=== PATIENT | female | born 1995 | race African-American/Black ===

== ENCOUNTER 2018-04-14 19:31 | Emergency (ER) | payer OTHER ==
[2018-04-14 19:42] VITALS: BP 115/71; PULSE 70; TEMP 98.4; BMI 19.6
--- NOTE | 2018-04-14 19:42 | PDOC ---
Rapid Medical Evaluation Chief Complaint: Pain Time Seen by Provider: 04/14/18 19:40 Medical Evaluation: Allergies Allergy/AdvReac Type Severity Reaction Status Date / Time shellfish derived Allergy Severe anaphylaxis Verified 07/26/15 08:55 04/14/18 19:40 I have performed a brief in-person evaluation of this patient. The patient presents with a chief complaint of vaginal and anal pain started at 3pm with vaginal itching. Denies vaginal discharge, states period earlier this month, light Pertinent physical exam findings: appears uncomfortable unlabored breathing I have ordered the following: urine , analgesia The patient will proceed to the ED for further evaluation.
[2018-04-14] MEDS ORDERED: KETOROLAC TROMETHAMINE 30 MG/1 ML VIAL IM ONE (19:43)
[2018-04-14] MEDS ORDERED: KETOROLAC TROMETHAMINE 30 MG/1 ML VIAL ONE ×2 (20:05→20:08)
[2018-04-14 20:34] LABS: URINE APPEARANCE SLCLOUDY; URINE BILIRUBIN NEGATIVE (<2.0 mg/dL); URINE COLOR YELLOW; URINE GLUCOSE (UA) NEGATIVE (NEGATIVE); URINE KETONE NEGATIVE (NEGATIVE); URINE NITRITE POSITIVE (NEGATIVE); URINE PROTEIN NEGATIVE (NEGATIVE); URINE UROBILINOGEN 4.0 E.U/dl mg/dL (0.2-1.0)
[2018-04-14 20:35] LABS: HCG,QUALITATIVE URINE NEGATIVE
[2018-04-14 20:36] LABS: URINE LEUK ESTERASE 3+ (NEGATIVE)
[2018-04-14 20:37] LABS: EPI CELLS MODERATE /HPF (FEW); URINE BACTERIA RARE /hpf (NONE SEEN); URINE MUCUS RARE
[2018-04-14] MEDS ORDERED: CEPHALEXIN MONOHYDRATE 500 MG CAPSULE (UD) PO ONE (21:24)
--- NOTE | 2018-04-14 21:30 | PDOC ---
History of Present Illness - General Chief Complaint: Pain Stated Complaint: ABD PAIN Time Seen by Provider: 04/14/18 19:40 History Source: Patient - History of Present Illness Initial Comments: 04/14/18 21:30 22-year-old female complaining of vaginal pain, vaginal itching and anal itching with copious white curdy discharge. Patient also reports some suprapubic pain. Patient reports that she has no partner unsure of gonorrhea and chlamydia exposure. Patient would not like treatment for gonorrhea and chlamydia until the test results come back. Denies fever, chills, nausea vomiting diarrhea, constipation and urinary symptoms at this time Past History - Past Medical History Allergies/Adverse Reactions: Allergies Allergy/AdvReac Type Severity Reaction Status Date / Time shellfish derived Allergy Severe anaphylaxis Verified 07/26/15 08:55 Home Medications: Ambulatory Orders Fluoxetine HCl [Prozac] 20 mg PO DAILY 04/15/18 Lamotrigine [Lamotrigine ER] 10 mg PO DAILY 04/15/18 Asthma: Yes Cancer: No Cardiac Disorders: No COPD: No Diabetes: No HTN: No Seizures: Yes Thyroid Disease: No - Reproductive History (#): 1 Para: 1 Therapeutic (s) & number: No - Suicide/Smoking/Psychosocial Hx Smoking History: Never smoked Have you smoked in the past 12 months: No Hx Alcohol Use: No Drug/Substance Use Hx: No Review of Systems - Review of Systems Able to Perform ROS?: Yes Is the patient limited Citizen Of [place] proficient: No : No: Symptoms Reported, See HPI, Burning, Dysuria, Discharge, Frequency, Flank Pain, Hematuria, Incontinence, Pain, Urgency, Testicular Mass, Testicular Swelling, Lesions, Testicular Pain, Other Musculoskeletal: Yes: Other (vaginal discharge, vaginal pain) *Physical Exam - Vital Signs Last Vital Signs Temp Pulse Resp BP Pulse Ox 98.4 F 70 20 115/71 98 04/14/18 19:40 04/14/18 19:40 04/14/18 19:40 04/14/18 19:40 04/14/18 19:40 - Physical Exam General Appearance: Yes: Appropriately Dressed Female Pelvic Exam: positive: normal external exam, other (copious cottage cheese appearing vaginal discharge. ) Gastrointestinal/Abdominal: positive: Tender (suprapubic tenderness), Soft Extremity: positive: Normal Capillary Refill, Normal Inspection, Normal Range of Motion Integumentary: positive: Normal Color, Dry, Warm Neurologic: positive: Fully Oriented, Alert ED Treatment Course - ADDITIONAL ORDERS Additional order review: Laboratory Results 04/14/18 20:21 Urine Color Yellow Urine Appearance Slcloudy Urine pH 7.0 D Ur Specific [place] 1.020 Urine Protein Negative Urine Glucose (UA) Negative Urine Ketones Negative Urine Blood Negative Urine Nitrite Positive Urine Bilirubin Negative Urine Urobilinogen 4.0 e.u/dl H Ur Leukocyte Esterase 3+ H Urine WBC (Auto) 11 Urine RBC (Auto) 3 Ur Epithelial Cells Moderate Urine Bacteria Rare Urine Mucus Rare Urine HCG, Qual Negative - Medications Given in the ED: ED Medications Discontinued Medications Generic Name Dose Route Start Last Admin Trade Name Freq PRN Reason Stop Dose Admin Ketorolac Tromethamine 30 mg 04/14/18 19:43 04/14/18 20:30 Toradol Injection - IM 04/14/18 19:44 30 mg ONCE ONE Administration Progress Note - Progress Note Progress Note: candidiasis UTI P: UA UCX fluconozaole bactrim *DC/Admit/Observation/Transfer Diagnosis at time of Disposition: Rima albicans infection UTI (urinary tract infection) Qualifiers: Urinary tract infection type: acute cystitis Hematuria presence: without hematuria Qualified Code(s): N30.00 - Acute cystitis without hematuria - Discharge Dispostion Disposition: HOME Condition at time of disposition: Good - Referrals - Patient Instructions Printed Discharge Instructions: Urinary Tract Infection Additional Instructions: drink plenty of fluids follow up with your doctor as soon as possible. insert monostat as prescribed. - Post Discharge Activity Forms/Work/School Notes: Back to Work
[2018-04-14] MEDS ORDERED: FLUCONAZOLE 50 MG TABLET PO ONE (21:43)
[2018-04-14] MEDS ORDERED: SULFAMETHOXAZOLE/TRIMETHOPRIM 800MG/160MG D.S. TABLET PO ONE (21:43)
[2018-04-14] MEDS ORDERED: CEPHALEXIN MONOHYDRATE 500 MG CAPSULE (UD) ONE (21:52)
[2018-04-14] MEDS ORDERED: SULFAMETHOXAZOLE/TRIMETHOPRIM 800MG/160MG D.S. TABLET ONE (21:52)
[2018-04-14] MEDS ORDERED: FLUCONAZOLE 100 MG TABLET (UD) ONE (21:52)
--- NOTE | 2018-04-17 07:34 | PDOC ---
Patient Follow-up (Call Back) - Post ED Follow - Up Condition at time of discharge: Good Disposition at time of original discharge: HOME Reason for Call Back: Abnwl. Microbiology (The patient's urine culture on preliminary report shows non-lactose fermenting GNB greater than 100,000 CFU per mL. patient was given Bactrim. Will await final report.)
== END 2018-04-14 22:40 | disposition home or self-care (01) ==
LOC: JER 19:31
PROC: 3E0233Z Introduction of Anti-inflammatory into Muscle, Percutaneous Approach (ICD-10-PCS; principal; 2018-04-14)
DX: B37.41 Candidal cystitis and urethritis (principal)
CPT/HCPCS: 36415; 81003; 81015; 84703; 87086; 87186; 87491; 87591; 99283-25

== ENCOUNTER 2018-06-04 02:16 | Emergency (ER) | payer OTHER ==
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
[2018-06-04 03:28] VITALS: BP 122/82; PULSE 70; TEMP 97.9; BMI 18.8
[2018-06-04 03:51] LABS: URINE APPEARANCE CLEAR; URINE BILIRUBIN NEGATIVE (<2.0 mg/dL); URINE COLOR YELLOW; URINE GLUCOSE (UA) NEGATIVE (NEGATIVE); URINE KETONE NEGATIVE (NEGATIVE); URINE NITRITE NEGATIVE (NEGATIVE); URINE PROTEIN NEGATIVE (NEGATIVE)
[2018-06-04 03:56] LABS: URINE LEUK ESTERASE 2+ (NEGATIVE)
[2018-06-04 03:59] LABS: EPI CELLS RARE /HPF (FEW); URINE MUCUS MANY
[2018-06-04 04:07] LABS: HCG,QUALITATIVE URINE NEGATIVE
[2018-06-04 04:10] LABS: COCAINE, UR NEGATIVE ng/ml (CUTOFF=300); METHADONE, UR NEGATIVE ng/ml (CUTOFF=300); OPIATES, URI NEGATIVE ng/ml (CUTOFF=300); PHENCYCLIDINE,URINE NEGATIVE ng/ml (CUTOFF=25); URINE AMPHETAMINES NEGATIVE ng/ml (CUTOFF=500); URINE BARBITURATES NEGATIVE ng/ml (CUTOFF=200); URINE BENZODIAZEPINES NEGATIVE ng/ml (CUTOFF=200)
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
== END 2018-06-04 04:30 | disposition home or self-care (01) ==
LOC: JER 02:16
DX: N30.00 Acute cystitis without hematuria (principal); B96.89 Other specified bacterial agents as the cause of diseases classified elsewhere; F41.9 Anxiety disorder, unspecified; G40.909 Epilepsy, unspecified, not intractable, without status epilepticus
CPT/HCPCS: 80307; 81003; 81015; 84703; 87086; 99282-25

== ENCOUNTER 2018-08-10 10:02 | Emergency (ER) | payer OTHER ==
[2018-08-10] MEDS ORDERED: SODIUM CHLORIDE 0.9% 500 ML INFUS.BAG IV ONE (10:11)
--- NOTE | 2018-08-10 10:37 | PDOC ---
History of Present Illness - General History Source: Patient Exam Limitations: No Limitations - History of Present Illness Initial Comments: 08/10/18 10:59 The patient is a 23 year old female, , approximately 6 weeks with a significant past medical history of anxiety, seizure disorder (discontinued lamictal last week) and ?CVA/stroke while working at [facility] which was treated at [facility] (not placed on any medication regimen following discharge), who presents to the emergency department via ems for near syncopal episode this morning. The patient states she woke up as usual, ate 4 waffles, and took her folic acid and vitamins feeling well. She states she went outside and stood in the sun for a moment before she developed a sudden onset of generalized weakness and lightheadedness. She states she was able to walk up one flight of stairs back to her apartment, however, developed shortness of breath and increase in weakness. She states she has experienced syncope in the past so she knew to lay down. She states her neighbors came and brought her water. The patient states she never lost consciousness or hit her head. She denies any vaginal discharge or bleeding. She denies abdominal cramping, but states her stomach feels like I have diarrhea. She denies any diarrhea. She denies having a seizure. No head trauma or LOC. She reports having an EEG, cardiac echo, 48 holter monitor, and other tests during her stay at [facility] s/p stroke and states she has not received the results from her neurologist yet because he is hard to reach. She has an appt with [facility] with Laura Krishnan the first week of August. The patient denies chest pain, headache and dizziness. The patient denies fever , chills, nausea, vomit, diarrhea and constipation. The patient denies dysuria, frequency, urgency and hematuria. Allergies: shellfish Past surgical history: none reported Social history: denies toxic habits <Flora Koroma - Last Filed: 08/10/18 12:05> - General History Source: Patient Exam Limitations: No Limitations <Desirae Osuna - Last Filed: 08/10/18 14:54> - General Chief Complaint: Syncope/Near Syncope Stated Complaint: NEAR SYNCOPE Time Seen by Provider: 08/10/18 10:10 Past History <Flora Koroma - Last Filed: 08/10/18 12:05> - Past Medical History Asthma: Yes Cancer: No Cardiac Disorders: No COPD: No Diabetes: No HTN: No Seizures: Yes Thyroid Disease: No - Reproductive History (#): 1 Para: 1 Therapeutic (s) & number: No - Suicide/Smoking/Psychosocial Hx Smoking History: Never smoked Have you smoked in the past 12 months: No Hx Alcohol Use: No Drug/Substance Use Hx: No Substance Use Type: Alcohol <Desirae Osuna - Last Filed: 08/10/18 14:54> - Past Medical History Allergies/Adverse Reactions: Allergies Allergy/AdvReac Type Severity Reaction Status Date / Time shellfish derived Allergy Severe anaphylaxis Verified 08/10/18 10:07 Home Medications: Ambulatory Orders Fluoxetine HCl [Prozac] 20 mg PO DAILY 04/15/18 Lamotrigine [Lamotrigine ER] 10 mg PO DAILY 04/15/18 Cephalexin Monohydrate [Keflex -] 500 mg PO BID #20 capsule 06/04/18 Doxylamine Succinate/Vit B6 [Diclegis Dr 10-10 mg Tablet] 1 each PO DAILY #14 tablet. 08/10/18 Review of Systems - Review of Systems Able to Perform ROS?: Yes Comments:: 08/10/18 10:59 GENERAL/CONSTITUTIONAL: (+) generalized weakness. + Near syncope. No fever or chills. no sweats. HEAD, EYES, EARS, NOSE AND THROAT: No change in vision or hearing. No ear pain or discharge. No sore throat or mouth pain. No difficulty swallowing.. No congestion. CARDIOVASCULAR: (+) lightheadedness. No chest pain or palpitations, syncope or edema. RESPIRATORY: No SOB, cough, wheezing, or hemoptysis. GASTROINTESTINAL No nausea/vomiting. No diarrhea or constipation. No bloody stools. GENITOURINARY: No hematuria, dysuria, frequency, urgency or other changes. MUSCULOSKELETAL: No joint or muscle swelling or pain. No neck or back pain. SKIN: No rash or changes in skin color or lesions. NEUROLOGIC: No headache, vertigo, loss of consciousness, or change in strength/ sensation. No gait instability. HEMATOLOGIC/LYMPHATIC: No anemia, easy bruising/bleeding, or history of blood clots. ALLERGIC/IMMUNOLOGIC: No allergies All other systems reviewed and negative, or as documented in HPI. <DanaenicholFlora worthington - Last Filed: 08/10/18 12:05> *Physical Exam - Vital Signs Last Vital Signs Temp Pulse Resp BP Pulse Ox 98.0 F 58 L 16 109/61 100 08/10/18 10:03 08/10/18 10:03 08/10/18 10:03 08/10/18 10:03 08/10/18 10:03 - Physical Exam Comments: 08/10/18 10:59 General: Well appearing, awake and alert, NAD. HEENT: NCAT, PERRL, EOMI, clear conjunctiva, anicteric, moist mucus membranes, clear oropharynx, no oral lesions.. Neck: neck supple, FROM Resp: CTAB, normal and even respirations, no respiratory distress CVS: RRR, no murmurs, 2+ peripheral pulses throughout, no peripheral edema Abdomen: soft, NTND, no peritoneal signs. Back: nontender, normal inspection and ROM MSK: no edema, GUTIERREZ x4, ROM intact. No clubbing or cyanosis. normal bulk and tone. Neuro: alert, oriented appropriately; no focal neurologic deficits. SILT, 5/5 distal and prox strength in all extrem. speech clear. Skin: warm and well perfused, cap refill <2 sec, normal color <Flora Koroma - Last Filed: 08/10/18 12:05> ED Treatment Course - LABORATORY CBC & Chemistry Diagram: 08/10/18 10:41 08/10/18 10:41 - RADIOLOGY Radiograph Interpretation: EXAM#: TYPE/EXAM: RESULT: [id number] US/ <14WKS US HISTORY PROVIDED: evaluation. Real time examination of the pelvis demonstrates the following: There is a single, live intrauterine with crown-rump measurements corresponding to a gestational age of 6 weeks. A heart rate of 156 BPM was calculated. The ovaries could not be identified. There is no evidence of adnexal masses or free pelvic fluid collections. IMPRESSION: Single, live intrauterine of 6 weeks gestational age. Reported By: Ney Valverde MD 08/10/18 1132 - Medications Given in the ED: ED Medications Discontinued Medications Generic Name Dose Route Start Last Admin Trade Name Freq PRN Reason Stop Dose Admin Sodium Chloride 1,000 ml 08/10/18 10:11 08/10/18 10:40 Normal Saline - IV 08/10/18 10:12 1,000 ml ONCE ONE Administration <Flora Koroma - Last Filed: 08/10/18 12:05> - LABORATORY CBC & Chemistry Diagram: 08/10/18 10:41 08/10/18 10:41 <Desirae Osuna - Last Filed: 08/10/18 14:54> Medical Decision Making - Medical Decision Making 08/10/18 14:50 23 year old female, , approximately 6 weeks with a significant past medical history of anxiety, seizure disorder (discontinued lamictal last week) and ?CVA/stroke while working at [facility] presenting with dizziness, since resolved. no AP or VB. vitals wnl. labs and lytes wnl. preg test positive, IUP confirmed at 6 weeks w/o pelvic FF or adnexal abnormalities on TVUS. UA neg for infection, completed macrobid course. UA neg for ketones or signs of dehydration. given IVF, well appearing, declines pain meds or antiemetics at this time. clinically well appearing, nontoxic. abdomen nontender, able to tolerate PO. OB followup, referral given. c/w prenatals, avoid tobacco or smoking. also rx'd diclegis for nausea in . referrals for [place] care and OB given. Pt informed of my clinical impression, treatment recommendations and disposition plan. All questions answered to patient's satisfaction and expressed understanding and comfort with this. Reasons for returning to the ED sooner discussed with the patient otherwise, follow up with primary care physician. At the time of discharge, the patient is alert, clinically improved, tolerating po and verbalizes understanding of instructions. return precautions such as pain, syncope or bleeding. 08/10/18 14:53 <Desirae Osuna - Last Filed: 08/10/18 14:54> *DC/Admit/Observation/Transfer - Attestations Scribe Attestion: 08/10/18 10:59 Documentation prepared by Flora Koroma, acting as program medical director for Desirae Osuna MD, <Flora Koroma - Last Filed: 08/10/18 12:05> - Discharge Dispostion Decision to Admit order: No <Desirae Osuna - Last Filed: 08/10/18 14:54> Diagnosis at time of Disposition: , Dizziness - Discharge Dispostion Disposition: HOME Condition at time of disposition: Improved - Prescriptions Prescriptions: Doxylamine Succinate/Vit B6 [Diclegis Dr 10-10 mg Tablet] 1 each PO DAILY #14 tablet.dr - Referrals Referrals: Savanna Alves [Primary Care Provider] - Ling Kidd MD [Staff Physician] - Laura Krishnan MD [Certified Nurse Senior Field Service Engineer] - - Patient Instructions Printed Discharge Instructions: Diet, DI for Abdominal Pain -- Early , DI for Dizziness-Nonvertigo Additional Instructions: Your laboratory / imaging results were normal, urine negative for infection your ultrasound confirms baby at 6 weeks. Follow up with your physician and consultants as instructed, take your medications as instructed including Diclegis daily as needed for nausea, may cause sleepiness Return if worsening symptoms including fevers, headache, vomiting, visual or hearing disturbances, abdominal pain, chest pain, shortness of breath, syncope, dehydration, inability to take things by mouth/vomiting, altered mental status, or worsening concerning symptoms. your medications on discharge include Diclegis side effects may include upset stomach, abdominal pain, vomiting, or diarrhea. do not drink alcohol with your medications or use tobacco. take your vitamins please follow up with spinner operator for your stay well hydrated . - Post Discharge Activity Forms/Work/School Notes: Back to Work
[2018-08-10 10:52] VITALS: BP 109/61; PULSE 58; TEMP 98; BMI 18.4
[2018-08-10 10:58] LABS: BASO % 0.3 % (0-2.0); EOS % 1.3 % (0-4.5); HEMATOCRIT 37.7 % (32.4-45.2); HEMOGLOBIN 12.3 GM/dL (10.7-15.3); LYMPH % 12.4 % (8-40); MCH 28.5 pg (25.7-33.7); MCHC 32.5 g/dl (32.0-36.0); MEAN CELL VOLUME 87.6 fl (80-96); MEAN PLT VOLUME 7.2 fl (7.5-11.1); MONO % 5.9 % (3.8-10.2); NEUT % 80.1 % (42.8-82.8); PLATELET COUNT 216 K/MM3 (134-434); RDW 13.1 % (11.6-15.6); WHITE BLOOD COUNT 11.6 K/mm3 (4.0-10.0)
[2018-08-10 11:13] LABS: POTASSIUM 3.8 mmol/L (3.5-5.1)
[2018-08-10 12:30] LABS: CALCIUM 9.2 mg/dL (8.5-10.1)
[2018-08-10 12:56] LABS: ALBUMIN 3.3 g/dl (3.4-5.0); ANION GAP 9 MMOL/L (8-16); BLOOD UREA NITROGEN 13 mg/dL (7-18); CHLORIDE 107 mmol/L (98-107); CO2 23 mmol/L (21-32); GLUCOSE,RANDOM 79 mg/dL (74-106); SODIUM 139 mmol/L (136-145)
[2018-08-10 13:18] LABS: ALK PHOS 45 U/L (45-117); BILIRUBIN,TOTAL 1.1 mg/dL (0.2-1); CREATININE 0.6 mg/dL (0.55-1.3); SGOT/AST 14 U/L (15-37); SGPT/ALT 18 U/L (13-61); TOT PROT 7.2 g/dl (6.4-8.2)
--- NOTE | 2018-08-10 13:38 | EKG ---
Test Reason : Blood Pressure : / mmHG Vent. Rate : 056 BPM Atrial Rate : 056 BPM P-R Int : 146 ms QRS Dur : 088 ms QT Int : 378 ms P-R-T Axes : 024 083 061 degrees QTc Int : 364 ms SINUS BRADYCARDIA OTHERWISE NORMAL ECG WHEN COMPARED WITH ECG OF 06-DEC-2015 14:47, NO SIGNIFICANT CHANGE WAS FOUND Confirmed by KAYLAH TRIANA MD ([id number]) on 08/10/2018 1:37:39 PM Referred By: Confirmed By:KAYLAH TRIANA MD
[2018-08-10 14:30] LABS: HCG,QUALITATIVE URINE Positive
[2018-08-10 14:32] LABS: URINE APPEARANCE CLEAR; URINE BILIRUBIN NEGATIVE (<2.0 mg/dL); URINE COLOR YELLOW; URINE GLUCOSE (UA) NEGATIVE (NEGATIVE); URINE KETONE NEGATIVE (NEGATIVE); URINE LEUK ESTERASE NEGATIVE (NEGATIVE); URINE NITRITE NEGATIVE (NEGATIVE); URINE PROTEIN NEGATIVE (NEGATIVE); URINE UROBILINOGEN NEGATIVE mg/dL (0.2-1.0)
== END 2018-08-10 14:57 | disposition home or self-care (01) ==
LOC: JER 10:02
PROC: 3E0337Z Introduction of Electrolytic and Water Balance Substance into Peripheral Vein, Percutaneous Approach (ICD-10-PCS; principal; 2018-08-10)
DX: O26.891 Other specified pregnancy related conditions, first trimester (principal); Z3A.01 Less than 8 weeks gestation of pregnancy; R42 Dizziness and giddiness
CPT/HCPCS: 36415; 76801-TC; 80053; 81003; 84702; 84703; 85025; 87086; 93005; 93010; 96360; 99284-25

== ENCOUNTER 2019-04-07 11:00 | Inpatient (IN) | payer OTHER ==
--- NOTE | 2019-04-07 11:19 | HP ---
Past Medical History - Admission Chief Complaint: IOL History of Present Illness: 23yo @ 40.2wks here for elective IOL 2/2 maternal discomfort. No VB/LOF. Occ ctx. +FM Preg c/b UTI, h/o absence seizures- no meds; numerous triage visits, usually via EMS, for non urgent concerns. Last seen on 04/04 and was not in labor. Cervix 70/3/-3, offered scheduled elective IOL in the coming days, if no spont labor ensued. 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: Alzheimer's, CVA, Dementia, Migraine, Multiple Sclerosis, Peripheral Neuropathy, Parkinson's, Syncope, TIA, Vertigo, Other Cardiovascular: No: AFIB, Aneurysm, Aortic Insufficiency, Aortic Stenosis, CAD, CHF, Deep Vein Thrombosis, HTN, Hyperlipdemia, VT, Mitral Insufficiency, Mitral Stenosis, Murmur, Pulmonary Hypertension, Other Pulmonary: No: Asthma, Bronchitis, Cancer, COPD, O2 Dependent, Pneumonia, Previously Intubated, Pulmonary Embolus, Pulmonary Fibrosis, Sleep Apnea, Other Hepatobiliary: No: Cirrhosis, Cholelithiasis, Cholecystitis, Choledocholithiasis , Hepatitis A, Hepatitis B, Hepatitis C, Other Renal/: Yes: UTI ...: 2 ...Para: 1 ...Term: 1 ...: 0 ...Spon : 0 ... Weeks Gestation by Dates: 40.2 ...EDC by Dates: 04/05/19 ...EDC by Sono: 04/01/19 Heme/Onc: Yes: Anemia Infectious Disease: No: AIDS, C-Diff, Herpes Zoster, HIV, MRSA, STD's, Tuberculosis, VREF, Other Psych: Yes: Anxiety, Panic Musculoskeletal: No: Bursitis, Chronic low back pain, Hemiparesis, Hemiplegia, Osteoarthritis, Paraplegia, Other Rheumatology: No: Fibromyalgia, Gout, Lupus, Rheumatoid Arthritis, Sarcoidosis, Vasculitis, Other Endocrine: No: [place]'s Disease, Midnight's Disease, Diabetes Insipidus, Diabetes Mellitus, Hyperparathyroidism, Hyperthyroidism, Hypothyroidism, Osteopenia, SIADH, Other Additional Medical History: Absence Seizures - Past Surgical History Past Surgical History: Yes: None Hx Myomectomy: No Hx Transabdominal Cerclage: No - Smoking History Smoking history: Never smoked Have you smoked in the past 12 months: No - Alcohol/Substance Use Hx Alcohol Use: No - Social History Usual Living Arrangement: Yes: Alone ADL: Independent History of Recent Travel: No Home Medications - Allergies Allergies/Adverse Reactions: Allergies Allergy/AdvReac Type Severity Reaction Status Date / Time shellfish derived Allergy Severe anaphylaxis Verified 04/07/19 12:14 - Home Medications Home Medications: Ambulatory Orders Vit 108/Iron/Folic AC [ One Tablet] 1 each PO DAILY 12/15/18 Docusate Sodium [Colace] 1 tab PO BID 04/03/19 Tablet 1 tablet PO DAILY 04/07/19 Physical Exam - Maternity Constitutional: Yes: Well Nourished, No Distress, Calm Eyes: Yes: WNL, Conjunctiva Clear, EOM Intact HENT: Yes: WNL, Atraumatic, Normocephalic Neck: Yes: WNL, Supple, Trachea Midline Cardiovascular: Yes: WNL, Regular Rate and Rhythm Breast(s): Yes: WNL - Abdominal Exam/OB Number of Fetuses: Single Presentation: Vertex Contractions: Yes Regularity: Irregular Intensity: Mild/Mod Heart Rate Location: [facility] Category: I Accelerations: Non-Uniform Decelerations: None - Vaginal Exam/OB Vaginal Bleediing: No Speculum Exam: No Dilatation (cm): 3 Effacement (%): 70 Amniotic Membrane Status: Intact Presentation: Vertex/Position Station: -3 - Physical Exam Edema: No Problem List - Problems (1) Elective induction of labor planned Code(s): [id number] - Assessment/Plan 23yo @ 40.2wks here for elective IOL Admit to L&D chato AMOS Cat I tracing AROM/Pitocin Epidural prn Anticipate MARIANN Arellano MD
[2019-04-07] MEDS ORDERED: ELECTROLYTE-148 SOLN 1,000 ML IV SCH (11:30)
[2019-04-07] MEDS ORDERED: OXYTOCIN 20 UNITS in 0.9% NS 20 UNIT/1,000 ML INFUS.BAG IV ONE (11:31)
--- NOTE | 2019-04-07 11:51 | PN ---
Progress Note, Labor Vaginal Exam #1 Labor Exam Date: 04/07/19 Labor Exam Time: 11:50 Heart Rate (range): Cat I Dilatation: 4 Effacement (%): 70 Amniotic Membrane Status: Ruptured Presentation: Vertex/Position Station: -2 Remarks: AROM, clears Start pitocin Cat I tracing Epidural prn Anticipate Mercedez Arellano MD
[2019-04-07 11:59] VITALS: BMI 26.2
[2019-04-07 12:20] LABS: BASO % 0.2 % (0-2.0); HEMATOCRIT 33.1 % (32.4-45.2); HEMOGLOBIN 10.9 GM/dL (10.7-15.3); LYMPH % 12.9 % (8-40); MCH 29.8 pg (25.7-33.7); MCHC 32.8 g/dl (32.0-36.0); MEAN CELL VOLUME 90.8 fl (80-96); MEAN PLT VOLUME 6.6 fl (7.5-11.1); MONO % 8.5 % (3.8-10.2); NEUT % 77.4 % (42.8-82.8); PLATELET COUNT 289 K/MM3 (134-434); RBC 3.65 M/mm3 (3.60-5.2); RDW 13.6 % (11.6-15.6); WHITE BLOOD COUNT 11.8 K/mm3 (4.0-10.0)
[2019-04-07 12:43] LABS: CALCIUM 8.8 mg/dL (8.5-10.1); CREATININE 0.5 mg/dL (0.55-1.3); POTASSIUM 4.5 mmol/L (3.5-5.1)
[2019-04-07 12:47] LABS: INR 0.92 (0.83-1.09); PROTHROMBIN TIME (PATIENT) 10.8 SEC (9.7-13.0)
[2019-04-07 12:50] LABS: ACTIVATED PTT 30.5 SECONDS (25.2-36.5)
[2019-04-07] MEDS ORDERED: OXYTOCIN 30 UNITS in 0.9% NS 30 UNIT/500 ML INFUS.BAG IVPB SCH (13:00)
--- NOTE | 2019-04-07 15:50 | PN ---
Progress Note, Labor Vaginal Exam #1 Labor Exam Date: 04/07/19 Labor Exam Time: 15:49 Heart Rate (range): Cat I Dilatation: 5 Effacement (%): 70 Amniotic Membrane Status: Ruptured Presentation: Vertex/Position Station: -2 Remarks: Continue current management Continue pitocin Cat I tracing Anticipate MARIANN Arellano MD
[2019-04-07] MEDS ORDERED: SODIUM PHOSPHATE/NA BIPHOS 133 ML ENEMA PR ONE (18:22)
--- NOTE | 2019-04-07 18:22 | PN ---
Progress Note, Labor Vaginal Exam #3 Labor Exam Date: 04/07/19 Labor Exam Time: 18:22 Heart Rate (range): Cat I Dilatation: 6 Effacement (%): 80 Amniotic Membrane Status: Ruptured Presentation: Vertex/Position Station: -2 Remarks: Getting more uncomfortable Requesting enema, will give Cat I tracing Anticipate MARIANN Arellano MD
--- NOTE | 2019-04-07 20:32 | PN ---
Progress Note, Labor Vaginal Exam #4 Labor Exam Date: 04/07/19 Labor Exam Time: 20:31 Heart Rate (range): Cat I Dilatation: 6 Effacement (%): 80 Amniotic Membrane Status: Ruptured Presentation: Vertex/Position Station: -2 Remarks: No groover and turner last 2 hours Cont to increase pitocin, consider IUPC next exam if unchanged Cat I tracing Anticipate Kermit Arellano MD
[2019-04-07] MEDS ORDERED: OXYTOCIN 30 UNITS in 0.9% NS 30 UNIT/500 ML INFUS.BAG IVPB ONE (20:37)
--- NOTE | 2019-04-07 22:26 | PN ---
Progress Note, Labor Vaginal Exam #5 Labor Exam Date: 04/07/19 Labor Exam Time: 22:23 Heart Rate (range): Cat I Dilatation: 6 Effacement (%): 80 Amniotic Membrane Status: Ruptured Presentation: Vertex/Position Station: -2 Remarks: No cervical change x 4 hours despite regular contractions. 11 hours ruptured and on pitocin Will give additional 2 hours and if no cervical change, discussed PLTCS for arrested labor FHT Cat I Reassess in 2 hours Mercedez Arellano MD
[2019-04-07] MEDS ORDERED: ONDANSETRON 4 MG/2 ML VIAL IVPUSH PRN (23:24)
[2019-04-07] MEDS ORDERED: morphine SULFATE/Preservative Free 0.5 MG/ML (1cc Syringe) EP ONE (23:24)
[2019-04-07] MEDS ORDERED: CITRIC ACID/SODIUM CITRATE 30 ML UNIT-DOSE CUP PO ONE (23:31)
--- NOTE | 2019-04-07 23:31 | PN ---
Progress Note, Labor Vaginal Exam #5 Labor Exam Date: 04/07/19 Labor Exam Time: 23:28 Heart Rate (range): Cat I Dilatation: 6 Effacement (%): 80 Amniotic Membrane Status: Ruptured Presentation: Vertex/Position Station: -2 Remarks: No cervical progress and descent since 6pm; station still -2 On pitocin 18mu, ruptured and very comfortable 12 hours on pitocin now and only 2cm progress throughout the day despite regular contractions Discussed arrest of first stage of labor and option to proceed to OR for PLTCS. Risk of procedure discussed, including bleeding, infection and injury to surrounding organs Mercedez Arellano MD
[2019-04-07] MEDS ORDERED: morphine SULFATE/Preservative Free 0.5 MG/ML (1cc Syringe) ONE (23:39)
[2019-04-07] MEDS ORDERED: ceFAZolin SODIUM 1 GM VIAL ONE (23:40)
[2019-04-08] MEDS ORDERED: OXYTOCIN 10 UNITS/ML VIAL ONE ×2 (00:14→00:29)
[2019-04-08] MEDS ORDERED: KETOROLAC TROMETHAMINE 30 MG/1 ML VIAL ONE (00:39)
[2019-04-08] MEDS ORDERED: BENZOCAINE 28 GM HEMORRHOIDAL OINTMENT TP PRN (00:46)
[2019-04-08] MEDS ORDERED: BENZOCAINE 20% 57 GM BOTTLE TP PRN (00:46)
[2019-04-08] MEDS ORDERED: SENNOSIDES/DOCUSATE COMBO (SENNA PLUS) TABLET (UD) PO PRN (00:46)
[2019-04-08] MEDS ORDERED: IBUPROFEN 600 MG TABLET (FP) PO PRN (00:46)
[2019-04-08] MEDS ORDERED: oxyCODONE HCL 5 MG TABLET PO PRN (00:46)
[2019-04-08] MEDS ORDERED: WITCH HAZEL 50% (TUCKS) 40 PAD/JAR PAD TP PRN (00:46)
[2019-04-08] MEDS ORDERED: IBUPROFEN 800 MG/8 ML IJ IVPB PRN (00:46)
--- NOTE | 2019-04-08 00:46 | OP ---
Operative Note - Note: Operative Date: 04/08/19 Pre-Operative Diagnosis: PLTCS Operation: PLTCS Findings: VFI, GAGANDEEP position, no nuchal and meconium, Apgars 9/9. Weight pending. Normal tubes and ovaries. Post-Operative Diagnosis: Same as Pre-op Surgeon: Eloise Arellano Coffee Shop Aide: Maile Russo Anesthesia: Spinal Estimated Blood Loss (mls): 500 Drains, Volume Out (mls): 100 (clear urine)
[2019-04-08] MEDS ORDERED: OXYTOCIN 20 UNITS in 0.9% NS 20 UNIT/1,000 ML INFUS.BAG IV SCH (01:00)
[2019-04-08] MEDS ORDERED: OXYTOCIN 20 UNITS in 0.9% NS 20 UNIT/1,000 ML INFUS.BAG IV ONE (01:47)
[2019-04-08] MEDS: FERROUS SO4 325 MG TABLET (FP) PO SCH ×2 (10:20→21:22)
[2019-04-08] MEDS: PRENATAL VITAMINS W/ FOLIC ACID TABLET (FP) PO SCH (10:20)
--- NOTE | 2019-04-08 11:14 | OP ---
DATE OF OPERATION: 04/08/2019 PREOPERATIVE DIAGNOSIS: Arrest of labor. POSTOPERATIVE DIAGNOSIS: Arrest of labor. PROCEDURE PERFORMED: Primary low transverse section. SURGEON: Eloise Arellano MD TILTING SAW OPERATOR: Maile Russo MD ANESTHESIOLOGIST: Rocky Coffey MD ANESTHESIA TYPE: Spinal. ESTIMATED BLOOD LOSS: 500. INTRAVENOUS FLUIDS: Per Anesthesia record. URINE OUTPUT: 100 mL of clear urine at the end of the procedure. FINDINGS: Viable female , GAGANDEEP presentation. No nuchal, no meconium. Weight 8 pounds 5 ounces, Apgars 9 and 9. Normal tubes and ovaries bilaterally. COMPLICATIONS: None. CONDITION: Stable to the recovery room. DESCRIPTION OF PROCEDURE: After the appropriate consents were signed, the patient was taken to the operating room, where spinal anesthesia was administered. A Bates catheter had been inserted prior to entry into the operating room. The abdomen was then prepped and draped in the normal sterile fashion. A time-out was performed , confirming correct patient and procedure. A Pfannenstiel skin incision was made and carried through to the underlying layers until the fascia was nicked in the midline. The fascia was then extended laterally with the Rhodes scissors. The inferior aspect of the fascia was grasped with a Augusta clamp, tented upwards and the rectus muscles were dissected off bluntly and with the Rhodes scissors. Attention was then paid to the superior aspect, which was taken down in a similar fashion. The rectus muscles were bluntly in the midline. The peritoneum was entered bluntly. A bladder blade was then inserted. The uterine serosa was nicked in the midline and extended laterally with the Metzenbaum scissors. The bladder flap was then created digitally. The bladder blade was then reinserted. The uterus was incised in a low transverse fashion with the scalpel. Clear amniotic fluid was noted. The infant's head was delivered without difficulty, as were the remaining shoulder and body. The cord was clamped and cut. The was handed off to the awaiting pediatric staff. The placenta was then removed manually. The uterus was then cleared of all clot and debris. The hysterotomy was closed in a single layer with 1-0 Vicryl. The right edge, upon release of tension, was noted to be oozing and thisaspect was reinforced with a [id number] suture of 0 Vicryl, with a good result. The adnexa were inspected and noted to be normal. The gutters were cleared of all clot and debris. The muscles were then reapproximated with 2-0 chromic. The fascia was closed with 0 Vicryl. The skin was closed with 3-0 Vicryl. Appropriate bandages and dressings were placed. Sponge, lap and needle counts were correct x3. The patient did receive 1 g Ancef at the start of the procedure. She was taken from the operating room to the recovery area in stable condition. MD SUSAN CHAPIN/[id number] MTDD
[2019-04-08] MEDS ORDERED: ONDANSETRON 4 MG TABLET PO PRN (11:41)
[2019-04-08] MEDS: ACETAMINOPHEN 325 MG TABLET (FP) PO PRN (21:18)
[2019-04-08] MEDS: IBUPROFEN 600 MG TABLET (FP) PO PRN (21:18)
[2019-04-08] MEDS: SIMETHICONE 80 MG TAB.CHEW (FP) PO PRN (21:19)
[2019-04-09] MEDS ORDERED: BISACODYL 10 MG SUPP.RECT RC PRN (00:46)
[2019-04-09] MEDS: SIMETHICONE 80 MG TAB.CHEW (FP) PO PRN ×3 (03:40→19:46)
[2019-04-09] MEDS: IBUPROFEN 600 MG TABLET (FP) PO PRN ×2 (03:40→19:48)
[2019-04-09] MEDS: ACETAMINOPHEN 325 MG TABLET (FP) PO PRN ×2 (03:40→19:47)
[2019-04-09 07:17] LABS: BASO % 0.4 % (0-2.0); EOS % 0.7 % (0-4.5); HEMATOCRIT 26.6 % (32.4-45.2); HEMOGLOBIN 8.8 GM/dL (10.7-15.3); LYMPH % 8.9 % (8-40); MCH 29.9 pg (25.7-33.7); MCHC 33.1 g/dl (32.0-36.0); MEAN CELL VOLUME 90.3 fl (80-96); MEAN PLT VOLUME 6.7 fl (7.5-11.1); MONO % 8.1 % (3.8-10.2); NEUT % 81.9 % (42.8-82.8); PLATELET COUNT 249 K/MM3 (134-434); RBC 2.94 M/mm3 (3.60-5.2); RDW 13.5 % (11.6-15.6); WHITE BLOOD COUNT 17.4 K/mm3 (4.0-10.0)
[2019-04-09] MEDS: FERROUS SO4 325 MG TABLET (FP) PO SCH ×2 (09:30→22:17)
[2019-04-09] MEDS: PRENATAL VITAMINS W/ FOLIC ACID TABLET (FP) PO SCH (10:12)
--- NOTE | 2019-04-09 11:20 | PN ---
Post Progress Note Post Day: 1 Type of Delivery: Primary C/S Vital Signs: Vital Signs Temperature 98.5 F 04/09/19 10:00 Pulse Rate 87 04/09/19 10:00 Respiratory Rate 17 04/09/19 10:00 Blood Pressure 108/76 04/09/19 10:00 O2 Sat by Pulse Oximetry (%) 100 04/08/19 01:35 Uterus: Yes: Fundus below umbilicus Incision: Yes: Dressing dry and intact Abdomen/GI: Yes: Abdomen soft Lochia: Yes: Rubra Lochia, amount: Small Extremities: Yes: Calves non-tender Activity: Ambulating (Pain controlled. No fevers/chills.) - Labs Labs: CBC WBC 17.4 K/mm3 (4.0-10.0) H 04/09/19 06:00 RBC 2.94 M/mm3 (3.60-5.2) L 04/09/19 06:00 Hgb 8.8 GM/dL (10.7-15.3) L 04/09/19 06:00 Hct 26.6 % (32.4-45.2) L D 04/09/19 06:00 MCV 90.3 fl (80-96) 04/09/19 06:00 MCH 29.9 pg (25.7-33.7) 04/09/19 06:00 MCHC 33.1 g/dl (32.0-36.0) 04/09/19 06:00 RDW 13.5 % (11.6-15.6) 04/09/19 06:00 Plt Count 249 K/MM3 (134-434) 04/09/19 06:00 MPV 6.7 fl (7.5-11.1) L 04/09/19 06:00 Absolute Neuts (auto) 14.3 K/mm3 (1.5-8.0) H 04/09/19 06:00 Neutrophils % 81.9 % (42.8-82.8) 04/09/19 06:00 Lymphocytes % 8.9 % (8-40) D 04/09/19 06:00 Monocytes % 8.1 % (3.8-10.2) 04/09/19 06:00 Eosinophils % 0.7 % (0-4.5) 04/09/19 06:00 Basophils % 0.4 % (0-2.0) 04/09/19 06:00 Nucleated RBC % 0 % (0-0) 04/09/19 06:00 Problem List - Problems (1) Elective induction of labor planned Code(s): [id number] - Assessment/Plan 23yo s/p PLTCS, POD#1 Routine PP care Labs reviewed, anemia, iron BID Po pain control OOB, ambulate D/C to home POD#3 Mercedez Arellano MD
--- NOTE | 2019-04-10 09:06 | PN ---
Post Progress Note Type of Delivery: Primary C/S Vital Signs: Vital Signs Temperature 98.5 F 04/09/19 19:58 Pulse Rate 96 H 04/09/19 19:58 Respiratory Rate 20 04/09/19 19:58 Blood Pressure 120/82 04/09/19 19:58 O2 Sat by Pulse Oximetry (%) 100 04/08/19 01:35 Uterus: Yes: Fundus below umbilicus Incision: Yes: Dressing dry and intact, Sutures intact Abdomen/GI: Yes: Abdomen soft Lochia: Yes: Rubra Lochia, amount: Small Extremities: Yes: Calves non-tender Perineum: Yes: Intact Activity: Ambulating (Pain controlled. Ambulating w/o difficulty.) - Labs Labs: CBC WBC 17.4 K/mm3 (4.0-10.0) H 04/09/19 06:00 RBC 2.94 M/mm3 (3.60-5.2) L 04/09/19 06:00 Hgb 8.8 GM/dL (10.7-15.3) L 04/09/19 06:00 Hct 26.6 % (32.4-45.2) L D 04/09/19 06:00 MCV 90.3 fl (80-96) 04/09/19 06:00 MCH 29.9 pg (25.7-33.7) 04/09/19 06:00 MCHC 33.1 g/dl (32.0-36.0) 04/09/19 06:00 RDW 13.5 % (11.6-15.6) 04/09/19 06:00 Plt Count 249 K/MM3 (134-434) 04/09/19 06:00 MPV 6.7 fl (7.5-11.1) L 04/09/19 06:00 Absolute Neuts (auto) 14.3 K/mm3 (1.5-8.0) H 04/09/19 06:00 Neutrophils % 81.9 % (42.8-82.8) 04/09/19 06:00 Lymphocytes % 8.9 % (8-40) D 04/09/19 06:00 Monocytes % 8.1 % (3.8-10.2) 04/09/19 06:00 Eosinophils % 0.7 % (0-4.5) 04/09/19 06:00 Basophils % 0.4 % (0-2.0) 04/09/19 06:00 Nucleated RBC % 0 % (0-0) 04/09/19 06:00 Problem List - Problems (1) Elective induction of labor planned Code(s): [id number] - Assessment/Plan 23yo s/p PLTCS, POD#2 Routine PP care Labs reviewed, anemia, iron BID Po pain control OOB, ambulate D/C to home by POD#3 Mercedez Arellano MD
[2019-04-10] MEDS: IBUPROFEN 600 MG TABLET (FP) PO PRN ×2 (09:44→17:12)
[2019-04-10] MEDS: SIMETHICONE 80 MG TAB.CHEW (FP) PO PRN ×2 (09:44→17:12)
[2019-04-10] MEDS: PRENATAL VITAMINS W/ FOLIC ACID TABLET (FP) PO SCH (09:44)
[2019-04-10] MEDS: FERROUS SO4 325 MG TABLET (FP) PO SCH ×2 (09:44→21:36)
[2019-04-10] MEDS: ACETAMINOPHEN 325 MG TABLET (FP) PO PRN ×2 (09:45→17:12)
[2019-04-10 22:59] VITALS: TEMP 98.5
[2019-04-11] MEDS: IBUPROFEN 600 MG TABLET (FP) PO PRN (06:15)
[2019-04-11] MEDS: ACETAMINOPHEN 325 MG TABLET (FP) PO PRN (06:16)
[2019-04-11] MEDS: SIMETHICONE 80 MG TAB.CHEW (FP) PO PRN (06:16)
[2019-04-11 06:57] LABS: BASO % 0.5 % (0-2.0); EOS % 2.3 % (0-4.5); HEMATOCRIT 31.4 % (32.4-45.2); HEMOGLOBIN 10.2 GM/dL (10.7-15.3); LYMPH % 12.1 % (8-40); MCH 29.5 pg (25.7-33.7); MCHC 32.6 g/dl (32.0-36.0); MEAN CELL VOLUME 90.6 fl (80-96); MEAN PLT VOLUME 6.3 fl (7.5-11.1); MONO % 6.6 % (3.8-10.2); NEUT % 78.5 % (42.8-82.8); PLATELET COUNT 294 K/MM3 (134-434); RBC 3.46 M/mm3 (3.60-5.2); RDW 13.8 % (11.6-15.6); WHITE BLOOD COUNT 12.6 K/mm3 (4.0-10.0)
[2019-04-11 07:44] VITALS: BP 116/77; PULSE 62
--- NOTE | 2019-04-11 08:18 | DS ---
Physical Examination Vital Signs: Vital Signs Temperature 98.5 F 04/11/19 07:42 Pulse Rate 62 04/11/19 07:42 Respiratory Rate 20 04/11/19 07:42 Blood Pressure 116/77 04/11/19 07:42 O2 Sat by Pulse Oximetry (%) 100 04/08/19 01:35 Constitutional: Yes: Well Nourished Eyes: Yes: WNL HENT: Yes: WNL Neck: Yes: Supple Gastrointestinal: Yes: Normal Bowel Sounds Renal/: Yes: WNL Breast(s): Yes: WNL Musculoskeletal: Yes: WNL Extremities: Yes: WNL Edema: Yes Edema: LLE: 1+, RLE: 1+ Wound/Incision: Yes: Clean/Dry, Well Approximated, Sutures Intact Neurological: Yes: Alert, Oriented ...Motor Strength: WNL Psychiatric: Yes: Alert, Oriented Labs: CBC, BMP 04/11/19 06:41 04/07/19 12:00 Discharge Summary Reason For Visit: INDUCTION OF LABOR Current Active Problems Elective induction of labor planned (Acute) Procedures: Principal: PLTCS Hospital Course: Patient is on POD # 3 S/P PLTCS following failed IOL. Uncomplicated recovery inpatient course. Patient has been seen and evaluated for SW and final CPS decision is pending. Infant's Discharge disposition will be determined by CPS. PP/post-op precautions discussed and all questions answered. Condition: Stable - Instructions Diet, Activity, Other Instructions: Regular Diet return to clinic in 1 week for incision check and 6 weeks for check. call [facility] for appointment. [phone] Referrals: Eloise Arellano MD [Staff Physician] - Disposition: HOME - Home Medications Comprehensive Discharge Medication List: Ambulatory Orders Vit 108/Iron/Folic AC [ One Tablet] 1 each PO DAILY 12/15/18 Docusate Sodium [Colace] 1 tab PO BID 04/03/19 Tablet 1 tablet PO DAILY 04/07/19 Ibuprofen 600 mg PO Q6H PRN #30 tablet 04/09/19 Oxycodone HCl/Acetaminophen [Percocet 5-325 mg Tablet -] 1 - 2 tab PO Q6H PRN # 15 tab MDD 4 04/09/19
[2019-04-11] MEDS: PRENATAL VITAMINS W/ FOLIC ACID TABLET (FP) PO SCH (09:22)
[2019-04-11] MEDS: FERROUS SO4 325 MG TABLET (FP) PO SCH (09:22)
--- NOTE | 2019-04-13 15:13 | PATH ---
Surgical Pathology Report Patient Name: SANDRA LONGORIA Med. Rec. 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 MILD ACUTE CHORIOAMNIONITIS. Electronically Signed Hamida Valentine M.D. Gross Description The specimen is received fresh labeled placenta and is a 745 gram, 26 x 21 x 2.5 cm. placenta with attached membranes and umbilical cord. The attached membranes appear mucoid and insert marginally .The eccentrically attached umbilical cord measures 36 cm. in length and averages 2.2 cm. in diameter. No true knots or strictures are identified. Cut surface of the umbilical cord reveals 3 vessels. The surface is patel-blue with minimal fibrin deposition and appropriate caliber vessels. The maternal surface is red-brown with focal defects. Sectioning reveals red-brown, spongy parenchyma. No lesions are identified. Supervisor Felling Bucking sections are submitted in three cassettes as follows: 1- membrane rolls and umbilical cord; 2-3- full thickness sections of placenta. AE/04/10/2019 ebram/04/10/2019
== END 2019-04-11 13:30 | disposition home or self-care (01) | DRG 540 ==
LOC: JLDR 11:00 → J3W 04-08 03:03
PROVIDERS: ADMIT Obstetrics & Gynecology; ATTEND Obstetrics & Gynecology
PROC: 10D00Z1 Extraction of Products of Conception, Low, Open Approach (ICD-10-PCS; principal; 2019-04-08)
DX: O48.0 Post-term pregnancy (principal); Z3A.40 40 weeks gestation of pregnancy; O62.1 Secondary uterine inertia; Z37.0 Single live birth
CPT/HCPCS: 36415; 80048; 85025; 85610; 85730; 86593; 86850; 86900; 86901; 88307-TC

== ENCOUNTER 2019-04-29 17:07 | Emergency (ER) | payer OTHER | END 2019-04-29 18:40 | disposition home or self-care (01) | LOC: JER 17:07 → JERFT 18:40 ==

== ENCOUNTER 2019-07-30 11:30 | Emergency (ER) | payer OTHER ==
[2019-07-30 12:14] VITALS: BP 117/76; TEMP 98.1; BMI 20.6
[2019-07-30] MEDS ORDERED: ONDANSETRON 4 MG TABLET PO ONE ×2 (12:59→13:54)
--- NOTE | 2019-07-30 13:06 | PDOC ---
History of Present Illness - General Chief Complaint: Vomiting/Diarrhea Stated Complaint: G.I.UPSET Time Seen by Provider: 07/30/19 12:39 History Source: Patient - History of Present Illness Timing/Duration: reports: constant Past History - Past Medical History Allergies/Adverse Reactions: Allergies Allergy/AdvReac Type Severity Reaction Status Date / Time shellfish derived Allergy Severe anaphylaxis Verified 04/07/19 12:14 Home Medications: Ambulatory Orders Alprazolam [Xanax Xr] 2 mg PO ASDIR 04/29/19 Alprazolam [Xanax] 0.25 mg PO DAILY #3 tablet MDD 1 04/29/19 Fluoxetine HCl [Prozac -] 10 mg PO DAILY 04/29/19 Lamotrigine [Lamictal -] 100 mg PO DAILY 04/29/19 Ondansetron HCl [Zofran] 4 mg PO Q8H #8 tablet 07/30/19 Asthma: Yes Cancer: No Cardiac Disorders: No COPD: No Diabetes: No HTN: No Seizures: Yes Thyroid Disease: No - Reproductive History (#): 1 Para: 1 Therapeutic (s) & number: No - Immunization History Immunization Up to Date: Yes - Suicide/Smoking/Psychosocial Hx Smoking History: Never smoked Have you smoked in the past 12 months: No Hx Alcohol Use: No Drug/Substance Use Hx: No Substance Use Type: Alcohol Hx Substance Use Treatment: No Review of Systems - Review of Systems Constitutional: No: Chills, Fever, Weakness ABD/GI: Yes: Diarrhea, Nausea, Vomiting. No: Blood Streaked Bowels, Abdominal cramping *Physical Exam - Vital Signs Last Vital Signs Temp Pulse Resp BP Pulse Ox 98.1 F 119 H 20 117/76 100 07/30/19 12:09 07/30/19 12:09 07/30/19 12:09 07/30/19 12:09 07/30/19 12:09 - Physical Exam General Appearance: Yes: Appropriately Dressed. No: Apparent Distress HEENT: positive: Normal Voice Neck: positive: Supple Respiratory/Chest: negative: Respiratory Distress Gastrointestinal/Abdominal: positive: Normal Bowel Sounds, Soft. negative: Tender, Distended, Guarding, Rebound Integumentary: positive: Dry, Warm Neurologic: positive: Fully Oriented, Alert, Normal Mood/Affect Medical Decision Making - Medical Decision Making 07/30/19 13:00 24 yo F, no sig hx, here w/ n/v/d since yesterday. No abd pain, BRBPR, f/c. Child w/ similar sxs. No recent travel See exam M/l viral illness, unlikely appy, no RF for serious dysntery Exam remarkable for HR 119 at triage, NAD w/ benign abd -dose of zofran here and reassess *DC/Admit/Observation/Transfer Diagnosis at time of Disposition: Viral illness - Discharge Dispostion Disposition: HOME Condition at time of disposition: Improved - Prescriptions Prescriptions: Ondansetron HCl [Zofran] 4 mg PO Q8H #8 tablet - Referrals Referrals: Lizandro Wagoner MD [Primary Care Provider] - - Patient Instructions Printed Discharge Instructions: DI for Viral Syndrome Additional Instructions: Maintain adequate hydration Return to ED for worsening of symptoms as discussed - Post Discharge Activity
[2019-07-30] MEDS ORDERED: ONDANSETRON *ODT* 4 MG TABLET SL ONE (13:15)
[2019-07-30 13:59] VITALS: PULSE 96
== END 2019-07-30 14:02 | disposition home or self-care (01) ==
LOC: JER 11:30
DX: B34.9 Viral infection, unspecified (principal); G40.909 Epilepsy, unspecified, not intractable, without status epilepticus; J45.909 Unspecified asthma, uncomplicated
CPT/HCPCS: 99281-25; Q0162

== ENCOUNTER 2019-08-04 21:51 | Emergency (ER) | payer OTHER ==
[2019-08-04] MEDS ORDERED: SODIUM CHLORIDE 0.9% 1000 ML INFUS.BAG IV ONE (22:28)
[2019-08-04] MEDS ORDERED: FAMOTIDINE 20 MG/50 ML IVPB 20 MG/50 ML MG IVPB ONE ×2 (22:28→22:41)
[2019-08-04 22:29] VITALS: BP 120/72; PULSE 80; TEMP 98.3
--- NOTE | 2019-08-04 22:37 | PDOC ---
Attending Attestation - Resident Resident Name: JarontonyHolger - ED Attending Attestation I have performed the following: I have examined & evaluated the patient, The case was reviewed & discussed with the resident, I agree w/resident's findings & plan - HPI HPI: 08/04/19 22:34 Pt comes with vomiting since she ate a burger that she prepared at home. She had left the groud meat sitting on the counter for a long time; she thinks that he cooked the meat sufficiently; but almost immediately after eating the food she began to vomit and vomited up everything. She has no dysuria and she has no other acute complaints. She states that she is prone to UTIs and that she has some back pain. Pt delivered a baby via csection 3 months ago. She received a depo provera 3 mos ago and another 1 week ago. She is not a smoker. She has no fever. She is ; 1st baby was . Pt has no PMHX. - Physicial Exam PE: 08/04/19 22:36 Normal exam. Pt likely has food poisoning. Pt has back pains. No rashes; no flank pain. - Medical Decision Making 08/04/19 22:37 Check labs; UA; hydration. 08/04/19 23:33 CBC and chem are normal; pt continues to have cramps. IVF started. We will treat with some ofirmev for the pain. 08/04/19 23:34 UA pending 08/05/19 00:03 Pt is feeling slightly better. 08/05/19 00:35 Pt has nitrite positive urine; she will be treated with ceftriaxone and she will go home with keflex 500 x 7 days
--- NOTE | 2019-08-04 22:42 | PDOC ---
History of Present Illness - General History Source: Patient Exam Limitations: No Limitations - History of Present Illness Initial Comments: 08/04/19 22:33 24F with a PMH of anxiety, bipolar, and 3 months ago who presents to the ER with complaints of abdominal pain. The patient states that she had pain almost 7 days ago. She came 6 days ago to the ER and was diagnosed with a viral enteritis and discharged on zofran which she states helps her nausea. Since then , she's had diffuse abdominal cramping and soreness. She denies any continued diarrhea but states she's been nauseous. She admits to eating a "bad" burger and vomited once since then. She denies fever, chills, dysuria, hematuria, discharge. <Holger Shell - Last Filed: 08/05/19 00:17> <Cee Diaz - Last Filed: 08/05/19 01:07> - General Chief Complaint: Nausea/Vomiting Stated Complaint: ADOMINAL PAIN Time Seen by Provider: 08/04/19 22:18 Past History - Past Medical History Asthma: Yes Cancer: No Cardiac Disorders: No COPD: No Diabetes: No HTN: No Seizures: Yes Thyroid Disease: No - Reproductive History (#): 1 Para: 1 Therapeutic (s) & number: No - Immunization History Immunization Up to Date: Yes - Suicide/Smoking/Psychosocial Hx Smoking History: Unknown if ever smoked Have you smoked in the past 12 months: No Hx Alcohol Use: No Drug/Substance Use Hx: No Substance Use Type: Alcohol Hx Substance Use Treatment: No <Holger Shell - Last Filed: 08/05/19 00:17> <Cee Diaz - Last Filed: 08/05/19 01:07> - Past Medical History Allergies/Adverse Reactions: Allergies Allergy/AdvReac Type Severity Reaction Status Date / Time shellfish derived Allergy Severe anaphylaxis Verified 08/04/19 22:29 Home Medications: Ambulatory Orders Alprazolam [Xanax Xr] 2 mg PO ASDIR 04/29/19 Alprazolam [Xanax] 0.25 mg PO DAILY #3 tablet MDD 1 04/29/19 Fluoxetine HCl [Prozac -] 10 mg PO DAILY 04/29/19 Lamotrigine [Lamictal -] 100 mg PO DAILY 04/29/19 Ondansetron HCl [Zofran] 4 mg PO Q8H #8 tablet 07/30/19 Cephalexin Monohydrate [Keflex -] 500 mg PO BID #14 capsule 08/05/19 Review of Systems - Review of Systems Able to Perform ROS?: Yes Comments:: 08/04/19 22:36 GENERAL/CONSTITUTIONAL: No fever or chills. No weakness. HEAD, EYES, EARS, NOSE AND THROAT: No change in vision. No ear pain or discharge. No sore throat. CARDIOVASCULAR: No chest pain, palpitations, or lightheadedness. RESPIRATORY: No cough, wheezing, shortness of breath, or hemoptysis. GASTROINTESTINAL: + for abdominal pain, nausea, and vomiting. No diarrhea or constipation. GENITOURINARY: No dysuria, frequency, hematuria, or change in urination. MUSCULOSKELETAL: No joint or muscle swelling or pain. No neck or back pain. SKIN: No rash or lesions. NEUROLOGIC: No headache, numbness, tingling, focal weakness, loss of consciousness, or change in strength/sensation. Is the patient limited Latvian proficient: No <Holger Shell - Last Filed: 08/05/19 00:17> *Physical Exam - Vital Signs Last Vital Signs Temp Pulse Resp BP Pulse Ox 98.3 F 80 18 120/72 100 08/04/19 22:27 08/04/19 22:27 08/04/19 22:27 08/04/19 22:27 08/04/19 22:27 - Physical Exam Comments: 08/04/19 22:36 GENERAL: Well developed, well nourished. Awake and alert. No acute distress. HEENT: Normocephalic, atraumatic. Hearing grossly normal. Moist mucous membranes. PERRLA, EOMI. No conjunctival pallor. Sclera are non-icteric. NECK: Supple. Full ROM. No JVD. CARDIOVASCULAR: Regular rate and rhythm. No murmurs, rubs, or gallops. PULMONARY: No evidence of respiratory distress. Lungs clear to auscultation bilaterally. No wheezing, rales or rhonchi. ABDOMINAL: Soft. Non-tender. Non-distended. No rebound or guarding. GENITOURINARY: No CVA tenderness bilaterally. MUSCULOSKELETAL: Normal range of motion at all joints. No bony deformities or tenderness. EXTREMITIES: No cyanosis. No clubbing. No edema. No calf tenderness or swelling. SKIN: Warm and dry. Normal capillary refill. No rashes. No jaundice. NEUROLOGICAL: Alert, awake, appropriate. Cranial nerves 2-12 grossly intact. Normal speech. Gait is normal without ataxia. PSYCHIATRIC: Cooperative. Good eye contact. Appropriate mood and affect. <Holger Shell - Last Filed: 08/05/19 00:17> - Vital Signs Last Vital Signs Temp Pulse Resp BP Pulse Ox 98.3 F 80 18 120/72 100 08/04/19 22:27 08/04/19 22:27 08/04/19 22:27 08/04/19 22:27 08/04/19 22:27 <Cee Diaz - Last Filed: 08/05/19 01:07> ED Treatment Course - LABORATORY CBC & Chemistry Diagram: 08/04/19 22:40 08/04/19 22:40 <Holger Shell - Last Filed: 08/05/19 00:17> - LABORATORY CBC & Chemistry Diagram: 08/04/19 22:40 08/04/19 22:40 - ADDITIONAL ORDERS Additional order review: Laboratory Results 08/04/19 08/04/19 08/04/19 23:50 22:40 22:40 PT with INR 12.50 INR 1.06 Sodium Potassium Chloride Carbon Dioxide Anion Gap BUN Creatinine Est GFR (CKD-EPI)AfAm Est GFR (CKD-EPI)NonAf Random Glucose Calcium Total Bilirubin AST ALT Alkaline Phosphatase Total Protein Albumin Lipase Urine Color Yellow Urine Appearance Clear Urine pH 6.5 Ur Specific [place] 1.025 Urine Protein Negative Urine Glucose (UA) Negative Urine Ketones Negative Urine Blood Negative Urine Nitrite Positive H Urine Bilirubin Negative Urine Urobilinogen 1.0 Ur Leukocyte Esterase 1+ H Urine WBC (Auto) 24 Urine RBC (Auto) 1 Urine Casts (Auto) 18 U Epithel Cells (Auto) 2.0 Urine Bacteria (Auto) 2213.6 Blood Type A POSITIVE Antibody Screen Negative 08/04/19 08/04/19 22:40 22:40 PT with INR INR Sodium 142 Potassium 3.5 Chloride 110 H Carbon Dioxide 26 Anion Gap 6 L BUN 13.4 Creatinine 0.7 Est GFR (CKD-EPI)AfAm 140.55 Est GFR (CKD-EPI)NonAf 121.27 Random Glucose 88 Calcium 9.2 Total Bilirubin 0.8 AST 49 H ALT 100 H Alkaline Phosphatase 65 Total Protein 7.1 Albumin 3.9 Lipase 253 Urine Color Urine Appearance Urine pH Ur Specific [place] Urine Protein Urine Glucose (UA) Urine Ketones Urine Blood Urine Nitrite Urine Bilirubin Urine Urobilinogen Ur Leukocyte Esterase Urine WBC (Auto) Urine RBC (Auto) Urine Casts (Auto) U Epithel Cells (Auto) Urine Bacteria (Auto) Blood Type Antibody Screen 08/04/19 22:40 RBC 4.21 MCV 84.0 MCHC 32.5 RDW 13.5 MPV 7.1 L D Neutrophils % 63.4 Lymphocytes % 25.2 D Monocytes % 9.0 Eosinophils % 2.0 Basophils % 0.4 - Medications Given in the ED: ED Medications Discontinued Medications Generic Name Dose Route Start Last Admin Trade Name Germánq PRN Reason Stop Dose Admin Acetaminophen 1,000 mg 08/04/19 23:29 08/04/19 23:33 Ofirmev Injection - IVPB 08/04/19 23:30 1,000 mg ONCE ONE Administration Famotidine/Sodium Chloride 20 mg in 50 mls @ 100 mls/hr 08/04/19 22:28 23:01 Pepcid 20 Mg Premixed Ivpb - IVPB 08/04/19 22:57 100 mls/hr ONCE ONE Administration Ceftriaxone Sodium 1,000 mg/ 50 mls @ 100 mls/hr 08/05/19 00:17 08/05/19 00: 23 Dextrose IVPB 08/05/19 00:46 100 mls/hr ONCE ONE Administration Sodium Chloride 1,000 ml 08/04/19 22:28 08/04/19 23:00 Normal Saline - IV 08/04/19 22:29 1,000 ml ONCE ONE Administration <Cee Diaz - Last Filed: 08/05/19 01:07> Medical Decision Making - Medical Decision Making 08/04/19 22:50 24F with a PMH of 3 months ago, anxiety, and bipolar who presents to the ER with 1 week of crampy abdominal pain with nausea and vomiting and resolved diarrhea. Will obtain labs and UA. Giving fluids and pepcid and reassessing. 08/05/19 00:04 CBC, CMP, Lipase WNL. 08/05/19 00:17 UA shows UTI. Will give 1 g ceftriaxone and send keflex to pharmacy. Abd nontender. Pt aware. Both medications checked on [facility] and safe for mother who is lactating. <Holger Shell - Last Filed: 08/05/19 00:17> *DC/Admit/Observation/Transfer - Discharge Dispostion Decision to Admit order: No <SulemanHolger - Last Filed: 08/05/19 00:17> <DiazCee - Last Filed: 08/05/19 01:07> Diagnosis at time of Disposition: UTI (urinary tract infection) Qualifiers: Urinary tract infection type: site unspecified Hematuria presence: without hematuria Qualified Code(s): N39.0 - Urinary tract infection, site not specified - Discharge Dispostion Disposition: HOME Condition at time of disposition: Stable - Prescriptions Prescriptions: Cephalexin Monohydrate [Keflex -] 500 mg PO BID #14 capsule - Patient Instructions Printed Discharge Instructions: DI for Urinary Tract Infection (UTI) Additional Instructions: Your ER visit is not complete until your follow up with your primary care physician. Please follow up with your primary care physician in 1-2 days. Please return to the ER if you have any signs or symptoms of chest pain, shortness of breath, uncontrollable fever, chills, nausea, vomiting, numbness, tingling, or weakness in any part of your body, changes in vision, or slurred speech. Please take your medications as prescribed. Please return to the ER if symptoms persist, worsen, or new symptoms arise.
[2019-08-04 22:58] LABS: BASO % 0.4 % (0-2.0); HEMATOCRIT 35.3 % (32.4-45.2); HEMOGLOBIN 11.5 GM/dL (10.7-15.3); LYMPH % 25.2 % (8-40); MCH 27.3 pg (25.7-33.7); MCHC 32.5 g/dl (32.0-36.0); MEAN PLT VOLUME 7.1 fl (7.5-11.1); NEUT % 63.4 % (42.8-82.8); PLATELET COUNT 235 K/MM3 (134-434); RBC 4.21 M/mm3 (3.60-5.2); RDW 13.5 % (11.6-15.6); WHITE BLOOD COUNT 9.2 K/mm3 (4.0-10.0)
[2019-08-04 23:01] LABS: INR 1.06 (0.83-1.09); PROTHROMBIN TIME (PATIENT) 12.5 SEC (9.7-13.0)
[2019-08-04 23:23] LABS: ALBUMIN 3.9 g/dl (3.4-5.0); BILIRUBIN,TOTAL 0.8 mg/dL (0.2-1); BLOOD UREA NITROGEN 13.4 mg/dL (7-18); CALCIUM 9.2 mg/dL (8.5-10.1); CREATININE 0.7 mg/dL (0.55-1.3); POTASSIUM 3.5 mmol/L (3.5-5.1); TOT PROT 7.1 g/dl (6.4-8.2)
[2019-08-04] MEDS ORDERED: ACETAMINOPHEN 1000 MG/100 ML VIAL (NON FORMULARY) IVPB ONE (23:29)
[2019-08-04] MEDS ORDERED: ACETAMINOPHEN INJECTION 100 ML IVPB ONE (23:30)
[2019-08-05 00:05] LABS: HYALINE CASTS 18 /lpf (0-8); PH,URINE 6.5 (5.0-8.0); URINE APPEARANCE CLEAR; URINE BACTERIA 2213.6 /hpf (NEGATIVE); URINE BILIRUBIN NEGATIVE (NEGATIVE); URINE COLOR YELLOW; URINE GLUCOSE (UA) NEGATIVE (NEGATIVE); URINE KETONE NEGATIVE (NEGATIVE); URINE LEUK ESTERASE 1+ (NEGATIVE); URINE NITRITE POSITIVE (NEGATIVE); URINE PROTEIN NEGATIVE (NEGATIVE); URINE RBC 1 /hpf (0-4); URINE WBC 24 /hpf (0-5)
[2019-08-05] MEDS ORDERED: CEFTRIAXONE 1,000 MG in DEXTROSE 5%-WATER - 50 ML IVPB ONE (00:17)
[2019-08-05] MEDS ORDERED: CEFTRIAXONE 1 GM/50 ML BAG ONE (00:19)
== END 2019-08-05 01:07 | disposition home or self-care (01) ==
LOC: JER 21:51
PROC: 3E03329 Introduction of Other Anti-infective into Peripheral Vein, Percutaneous Approach (ICD-10-PCS; principal; 2019-08-04)
PROC: 3E033GC Introduction of Other Therapeutic Substance into Peripheral Vein, Percutaneous Approach (ICD-10-PCS; 2019-08-04)
PROC: 3E033NZ Introduction of Analgesics, Hypnotics, Sedatives into Peripheral Vein, Percutaneous Approach (ICD-10-PCS; 2019-08-04)
DX: N39.0 Urinary tract infection, site not specified (principal)
CPT/HCPCS: 36415; 80053; 81003; 83690; 85025; 85610; 86850; 86900; 86901; 87086; 87186; 96365; 96367; 96375; 99283-25; J0131; J7030

== ENCOUNTER 2020-01-01 19:53 | Emergency (ER) | payer OTHER ==
--- NOTE | 2020-01-01 20:07 | PDOC ---
Attending Attestation - Resident Resident Name: Rudy Bernardo - ED Attending Attestation I have performed the following: I have examined & evaluated the patient, The case was reviewed & discussed with the resident, I agree w/resident's findings & plan, Exceptions are as noted
[2020-01-01] MEDS ORDERED: ONDANSETRON 4 MG/2 ML VIAL IVPUSH ONE (20:08)
[2020-01-01 20:20] VITALS: BP 131/89; PULSE 79; TEMP 98.1; BMI 27.4
[2020-01-01] MEDS ORDERED: ACETAMINOPHEN 1000 MG/100 ML VIAL (NON FORMULARY) IVPB ONE (20:30)
--- NOTE | 2020-01-01 20:30 | PDOC ---
History of Present Illness - General Chief Complaint: Pain, Acute Stated Complaint: VOMITING Time Seen by Provider: 01/01/20 20:06 History Source: Patient - History of Present Illness Initial Comments: 24F PMH (04/10), anemia BIBEMS for midepigastric pain starting 1 hour after she ate a deli sandwich with associated vomiting and diarrhea x 1 episode each. Denies f/c, cp/sob. No sick contacts. Pt on depot, due for next dose this week, currently having menses, denies vaginal discharge, denies lower abdominal pain. NKDA Past History - Past Medical History Allergies/Adverse Reactions: Allergies Allergy/AdvReac Type Severity Reaction Status Date / Time shellfish derived Allergy Severe anaphylaxis Verified 01/01/20 20:19 Home Medications: Ambulatory Orders Alprazolam [Xanax Xr] 2 mg PO ASDIR 04/29/19 Alprazolam [Xanax] 0.25 mg PO DAILY #3 tablet MDD 1 04/29/19 Fluoxetine HCl [Prozac -] 10 mg PO DAILY 04/29/19 Lamotrigine [Lamictal -] 100 mg PO DAILY 04/29/19 Ondansetron HCl [Zofran] 4 mg PO Q8H #8 tablet 07/30/19 Cephalexin Monohydrate [Keflex -] 500 mg PO BID #14 capsule 08/05/19 Asthma: Yes Cancer: No Cardiac Disorders: No COPD: No Diabetes: No HTN: No Seizures: Yes Thyroid Disease: No - Reproductive History (#): 1 Para: 1 Therapeutic (s) & number: No - Immunization History Immunization Up to Date: Yes - Psycho Social/Smoking Cessation Hx Smoking History: Unknown if ever smoked Have you smoked in the past 12 months: No Hx Alcohol Use: No Drug/Substance Use Hx: No Substance Use Type: Alcohol Hx Substance Use Treatment: No Review of Systems - Review of Systems Able to Perform ROS?: Yes Comments:: CONSTITUTIONAL: Denies F / C HEENT: Denies headache RESP: Denies SOB CARD: Denies chest pain GI: Endorses vomiting, diarrhea, and midepigastric abdominal pain. Denies bloody stool, inability to tolerate PO : Endorses menses. Denies dysuria SKIN: Denies rashes NEURO: Denies numbness MSK: Denies back pain *Physical Exam - Physical Exam GEN: Mildly discomfort. AAOx3. HEENT: NC/AT, EOMI, PERRL. No facial asymmetry. Moist mucous membranes. Normal voice. Supple neck w/ FROM. CV: S1/S2, RRR, no m/r/g LUNG: CTAB, no wheezes, crackles, rales, rhonchi. GI: mild TTP midepigastrium, soft, nd, +BS, no guarding, no rebound. well healed scar. MSK: No obvious deformities of all extremities. SKIN: Warm, dry, no rashes appreciated. PSYCH: Odd affect NEURO: Moving all extremities well. ambulates w/ normal gait. ED Treatment Course - LABORATORY CBC & Chemistry Diagram: 01/01/20 20:32 01/01/20 20:32 Medical Decision Making - Medical Decision Making 01/01/20 20:19 24F with epigastric pain shortly after eating a deli sandwich, associated vomiting and diarrhea, nonbloody. DDX - enterogastritis, food poisoning, , ulcer - cbc, cmp, - zofran, tylenol 01/01/20 21:47 labs reviewed and reassuring wbc elevated to 16; likely reactive to vomiting and diarrhea pt feeling much better s/p tylenol DC home w/ strict return precautions and f/u Discharge - Discharge Information Problems reviewed: Yes Clinical Impression/Diagnosis: Abdominal pain Qualifiers: Abdominal location: epigastric Qualified Code(s): R10.13 - Epigastric pain Condition: Stable Disposition: HOME - Admission No - Follow up/Referral Referrals: Wilberto Bowen MD [Primary Care Provider] - - Patient Discharge Instructions Patient Printed Discharge Instructions: DI for Abdominal Pain-Adult Additional Instructions: Your symptoms may have been caused by the food you ate, we cannot be 100% sure. Your blood work was reassuring. Your test is negative. Take Tylenol for your pain as directed by the label. DO NOT EXCEED THE DOSAGE ON THE BOTTLE, THIS IS DANGEROUS. Keep hydrated - drink plenty of fluids. Follow up with your primary care doctor in the next 5-7 days. Follow up with your GLOBAL CLIMATE CHANGE ANALYST as scheduled. IMMEDIATELY return to the closest Emergency Department if you experience: - worsening pain or change in your pain - fevers - inability to eat or drink - bloody vomit or stool - anything that concerns you - Post Discharge Activity
[2020-01-01] MEDS ORDERED: ONDANSETRON 4 MG/2 ML VIAL ONE (20:41)
[2020-01-01] MEDS ORDERED: ACETAMINOPHEN INJECTION 100 ML IVPB ONE (20:41)
[2020-01-01 20:47] LABS: BASO % 0.3 % (0-2.0); EOS % 0.7 % (0-4.5); HEMATOCRIT 40.9 % (32.4-45.2); HEMOGLOBIN 13.2 GM/dL (10.7-15.3); MCHC 32.2 g/dl (32.0-36.0); MEAN CELL VOLUME 86.8 fl (80-96); MEAN PLT VOLUME 7.5 fl (7.5-11.1); MONO % 4.2 % (3.8-10.2); NEUT % 82.8 % (42.8-82.8); PLATELET COUNT 266 K/MM3 (134-434); RBC 4.71 M/mm3 (3.60-5.2); RDW 13.4 % (11.6-15.6)
[2020-01-01 21:11] LABS: ALBUMIN 4.3 g/dl (3.4-5.0); BILIRUBIN,TOTAL 0.8 mg/dL (0.2-1); BLOOD UREA NITROGEN 17.2 mg/dL (7-18); CALCIUM 9.4 mg/dL (8.5-10.1); CREATININE 0.9 mg/dL (0.55-1.3); POTASSIUM 3.6 mmol/L (3.5-5.1)
--- NOTE | 2020-01-01 22:06 | PDOC ---
Documentation entered by Braden Timmons SCRIBE, acting as scribe for Rashmi Zuñiga MD. Rashmi Zuñiga MD: This documentation has been prepared by the Iain hensley Angel, SCRIBE, under my direction and personally reviewed by me in its entirety. I confirm that the documentation accurately reflects all work, treatment, procedures, and medical decision making performed by me. Attending Attestation - Resident Resident Name: Rudy Bernardo - ED Attending Attestation I have performed the following: I have examined & evaluated the patient, The case was reviewed & discussed with the resident, I agree w/resident's findings & plan, Exceptions are as noted - HPI HPI: 01/01/20 20:08 24-year-old female presents with abdominal bloating and nausea after eating a deli sandwich. - Physicial Exam PE: 01/01/20 20:09 Slender 24-year-old female presents with nausea and abdominal pain Head normocephalic atraumatic Lungs are clear to auscultation bilaterally CVS regular rate rhythm S1-S2 Abdomen distended some diffuse abdominal pain No flank pain Extremities no edema Skin warm and dry Neuro alert and oriented x3, no gross focal neuro deficits - Medical Decision Making 01/01/20 20:09 Patient did give March 2019 Past surgical history 01/01/20 22:06 24-year-old female who is not presents with nausea vomiting diarrhea After treatment she feels much better and was discharged home impression gastroenteritis
== END 2020-01-01 22:21 | disposition home or self-care (01) ==
LOC: JER 19:53
PROC: 3E033GC Introduction of Other Therapeutic Substance into Peripheral Vein, Percutaneous Approach (ICD-10-PCS; principal; 2020-01-01)
PROC: 3E033NZ Introduction of Analgesics, Hypnotics, Sedatives into Peripheral Vein, Percutaneous Approach (ICD-10-PCS; 2020-01-01)
DX: K52.9 Noninfective gastroenteritis and colitis, unspecified (principal)
CPT/HCPCS: 36415; 80053; 84703; 85025; 96374; 96375; 99284-25; J0131

== ENCOUNTER 2020-06-19 11:40 | Emergency (ER) | payer OTHER ==
[2020-06-19 11:46] VITALS: BMI 20.5
--- NOTE | 2020-06-19 13:37 | PDOC ---
History of Present Illness - General Chief Complaint: Lightheaded Stated Complaint: POSSIBLE SEIZURE Time Seen by Provider: 06/19/20 12:41 Past History - Medical History Allergies/Adverse Reactions: Allergies Allergy/AdvReac Type Severity Reaction Status Date / Time shellfish derived Allergy Severe anaphylaxis Verified 01/01/20 20:19 Home Medications: Ambulatory Orders Alprazolam [Xanax Xr] 2 mg PO ASDIR 04/29/19 Alprazolam [Xanax] 0.25 mg PO DAILY #3 tablet MDD 1 04/29/19 Fluoxetine HCl [Prozac -] 10 mg PO DAILY 04/29/19 Lamotrigine [Lamictal -] 100 mg PO DAILY 04/29/19 Ondansetron HCl [Zofran] 4 mg PO Q8H #8 tablet 07/30/19 Cephalexin Monohydrate [Keflex -] 500 mg PO BID #14 capsule 08/05/19 Asthma: Yes Cancer: No Cardiac Disorders: No COPD: No Diabetes: No HTN: No Seizures: Yes Thyroid Disease: No - Reproductive History (#): 1 Para: 1 Therapeutic (s) & number: No - Immunization History Td Vaccination: Yes TDAP Vaccination: Yes Immunization Up to Date: Yes - Psycho-Social/Smoking History Smoking History: Never smoked Have you smoked in the past 12 months: No - Substance Abuse Hx (Audit-C & DAST Scrn) How often the patient has a drink containing alcohol: Never Score: In Men: 4 or > Positive; In Women: 3 or > Positive: 0 Screen Result (Pos requires Nsg. Audit-10AR): Negative In the last yr the pt used illegal drug/Rx for NonMed reason: No Score: Yes response is considered Positive: 0 Screen Result (Positive result requires Nsg. 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 Went to other ED for allergic reaction to mosquito bite on L calf placed on benadryl and amoxicillin. [place] fine yesterday. Today at work suddenly SOB, dizzy, L-sided neck pain, and numbness/tingling. Had sx on and off since last "stroke". Now only L-sided numbness and R-sided tingling and L-sided neck pain. Denies syncope, seizure, hx PE or DVT. Neuro - Dickoff ROS: Constitutional: Negative for chills, fever, fatigue, diaphoresis. HENT: Negative for sore throat, rhinorrhea, congestion. Eyes: Negative for visual disturbance. Respiratory: Positive for shortness of breath. Negative for cough, and wheezing. Cardiovascular: Negative for chest pain, palpitations, and leg swelling. Gastrointestinal: Negative for abdominal pain, blood in stool, constipation, diarrhea, nausea, and vomiting. Genitourinary: Negative for dysuria, flank pain, and hematuria. Musculoskeletal: Positive for L-sided neck pain. Negative for myalgias, back pain. Skin: Negative for rash. Neurological: Positive for L-sided numbness and R-sided tingling and dizziness. Negative for vertigo, syncope, weakness, and headaches. Psychiatric/Behavioral: Positive for anxiety, bipolar. Negative for confusion. PE: Gen: Alert, NAD, comfortable-appearing. HEENT: PERRL, EOMI, MMM, NCAT. No conjunctival pallor. Sclera are non-icteric. Oropharynx is clear. CV: Regular rate and rhythm. No murmurs, rubs, or gallops. PULM: No resp distress. CTAB, no wheezes, rales, or rhonchi. ABD: soft, NT/ND, no rebound tenderness or guarding, no CVA tenderness. BACK: TTP musculature L neck. No TTP of c/t/l-spine. No step-offs or deformities. MSK: No bony deformities. 2+ pulses in all extremities. NEURO: AAOx3. PERRL. CN 2-12 intact. 5/5 strength in all extremities. Decreased sensation to LLE and LUE, SILT to RUE/RLE. No pronator drift. No dysmetria. No dysdiadochokinesia. No abnormal nystagmus. Normal gait. EXTREMITIES: No cyanosis. No clubbing. No edema. No calf tenderness. PSYCH: Normal mood and thought pattern. SKIN: Warm and dry. Normal capillary refill. No rashes. No jaundice. MDM: Hemodynamically stable, afebrile, decreased sensation to LLE and LUE but otherwise neurologically intact. Ddx: highly suspicious for anxiety vs complex migraine vs psychiatric disorder. Also consdir ICH, stroke, , infection, metabolic derangement, anemia, arrhythmia -Pain management -EKG -CXR -CTH -CBC,CMP,Preg 06/19/20 14:48 Spoke with [facility] ED Attending - pt admitted June 2018, code stroke in ED for unilateral L-sided weakness, MRI normal, high suspicion for migraine vs anxiety. 06/19/20 15:02 Pt feeling better now, c/o mild weakness to L side of body, denies numbness or tingling. 5/5 strength throughout, SILT to all extremities, normal gait. 06/19/20 15:06 Cedric - recommends increase lamictal to 100 BID, can see outpatient today Since can d/c and see Dr Steele today or tomorrow, will defer changing lamictal to him. 06/19/20 15:13 CTH reviewed: No acute pathology Labs reviewed. No concerning findings. EKG reviewed: normal sinus rhythm, 61bpm, normal axis, normal intervals, no TWIs, no ST elevations or depressions 06/19/20 15:34 CXR reviewed: No acute pathology Due to normal workup, hx of similar sx with negative MRI (dx as migraine vs anxiety), lack of focal neuro deficits at this time, and changing description of weakness vs numbness, very low concern for stroke or other emergent pathology. Likely migraine vs anxiety. Safe for d/c with close neuro f/u today or tomorrow. Will discharge home with neuro f/u. Return precautions given. Pt understands all discharge instructions and all questions were answered. Discharge - Discharge Information Problems reviewed: Yes Clinical Impression/Diagnosis: Left sided numbness, Neck pain on left side, Dizziness Condition: Improved Disposition: HOME - Admission No - Follow up/Referral Referrals: Savanna Alves [Primary Care Provider] - Rudy Steele MD [Staff Physician] - - Patient Discharge Instructions Patient Printed Discharge Instructions: DI for Numbness/tingling, DI for Muscle Weakness Additional Instructions: You have been seen in the Emergency Department. Your CT scan of your head, EKG, chest X-ray, and labs show no signs concerning for an emergent condition such as a stroke. Your pain is most likely due to a muscle spasm in your neck. If you experience pain, you can take Tylenol or Ibuprofen as directed on the medication bottle, but do not exceed 3g of Ibuprofen or 4g of Tylenol a day. We spoke with your Neurologist Dr Steele - call his office today for a follow- up appointment tomorrow. Also follow-up with your primary care doctor within 1 week. Return to the Emergency Department immediately if you experience chest pain, difficulty breathing, passing out, difficulty walking or talking, or any other new or worsening symptom. - Post Discharge Activity
[2020-06-19] MEDS ORDERED: LIDOCAINE 5% TOPICAL PATCH TP ONE (13:54)
[2020-06-19] MEDS ORDERED: ACETAMINOPHEN 500 MG TABLET (FP) PO ONE (13:54)
[2020-06-19 14:40] LABS: BASO % 0.3 % (0-2.0); EOS % 0.6 % (0-4.5); HEMATOCRIT 40.1 % (32.4-45.2); HEMOGLOBIN 13.1 GM/dL (10.7-15.3); LYMPH % 21.6 % (8-40); MCH 28.5 pg (25.7-33.7); MCHC 32.8 g/dl (32.0-36.0); MEAN CELL VOLUME 87.1 fl (80-96); MEAN PLT VOLUME 7.6 fl (7.5-11.1); NEUT % 72.5 % (42.8-82.8); PLATELET COUNT 221 K/MM3 (134-434); RBC 4.61 M/mm3 (3.60-5.2); RDW 13.1 % (11.6-15.6); WHITE BLOOD COUNT 8.2 K/mm3 (4.0-10.0)
[2020-06-19] MEDS ORDERED: ACETAMINOPHEN INJECTION 100 ML IVPB ONE (14:45)
[2020-06-19] MEDS ORDERED: LIDOCAINE 5% TOPICAL PATCH ONE (14:46)
[2020-06-19 15:08] LABS: ALBUMIN 4.2 g/dl (3.4-5.0); BILIRUBIN,TOTAL 2.1 mg/dL (0.2-1); BLOOD UREA NITROGEN 18.6 mg/dL (7-18); CALCIUM 9.5 mg/dL (8.5-10.1); CREATININE 0.9 mg/dL (0.55-1.3); TOT PROT 7.8 g/dl (6.4-8.2)
--- NOTE | 2020-06-19 15:33 | PDOC ---
Documentation entered by Braden Timmons SCRIBE, acting as scribe for Anil Hernadez MD. Anil Hernadez MD: This documentation has been prepared by the Iain hensley Angel, SCRIBE, under my direction and personally reviewed by me in its entirety. I confirm that the documentation accurately reflects all work, treatment, procedures, and medical decision making performed by me. 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 Pt states that she has had these symptoms on and off for months. Pt was previously evaluated at [facility], where she was admitted and had MRI that was normal. Pt notes that the numbness affects her LUE and LLE. She denies any weakness. States that the symptoms wax and wane, and she currently does not have any numbness. She notes that she also has pain in the left side of her neck/shoulder. She states she has a heavy patient at work that she helps move. Denies any falls or trauma. - Physicial Exam PE: 06/19/20 15:39 "GENERAL: Awake, alert, and fully oriented, in no acute distress. HEAD: No signs of trauma EYES: PERRLA, EOMI, sclera anicteric, conjunctiva clear ENT: Auricles normal inspection, hearing grossly normal, nares patent, oropharynx clear without exudates. Moist mucosa NECK: Nontender, no stepoffs, Normal ROM, supple, no lymphadenopathy, JVD, or masses LUNGS: Breath sounds equal, clear to auscultation bilaterally. No wheezes, and no crackles HEART: Regular rate and rhythm, normal S1 and S2, no murmurs, rubs or gallops ABDOMEN: Soft, nontender, normoactive bowel sounds. No guarding, no rebound. No masses EXTREMITIES: Normal range of motion, no edema. No clubbing or cyanosis. No cor ds, erythema, or tenderness NEUROLOGICAL: Cranial nerves II through XII intact. 5/5 strength and sensation in all extremities, Normal speech, normal gait, normal cerebellar function SKIN: Warm, Dry, normal turgor, no rashes or lesions noted. - Medical Decision Making 06/19/20 15:39 24 F with intermittent L sided numbness. Nonfocal neuro exam in ED today. Also with L sided neck pain that is likely msk in etiology. - Labs - CT head 06/19/20 15:[address] unremarkable Discussed with Dr. Steele, who recommends outpt f/u. Can see pt today or tomorrow. Pt is well appearing, with normal vitals. Clinically stable for DC at this time. I discussed the physical exam findings, ancillary test results and final diagnoses with the patient. I answered all of the patient's questions. The patient was satisfied with the care received and felt comfortable with the discharge plan and treatment plan. The patient agrees to follow up with the primary care physician within 24-72 hours. Please note this patient was evaluated during the COVID-19 crisis with the presidential [place] Act Declaration and the [place] governar executive order number 202. He/she was evaluated and clinical decisions were made relative to healthcare system resources as well as clinical picture during a pandemic crisis situation. Discharge - Discharge Information Problems reviewed: Yes Clinical Impression/Diagnosis: Left sided numbness, Neck pain on left side, Dizziness Condition: Improved Disposition: HOME - Follow up/Referral Referrals: Rudy Steele MD [Staff Physician] - Savanna Alves [Primary Care Provider] - - Patient Discharge Instructions Patient Printed Discharge Instructions: DI for Numbness/tingling, DI for Muscle Weakness Additional Instructions: You have been seen in the Emergency Department. Your CT scan of your head, EKG, chest X-ray, and labs show no signs concerning for an emergent condition such as a stroke. Your pain is most likely due to a muscle spasm in your neck. If you experience pain, you can take Tylenol or Ibuprofen as directed on the medication bottle, but do not exceed 3g of Ibuprofen or 4g of Tylenol a day. We spoke with your Neurologist Dr Steele - call his office today for a follow- up appointment tomorrow. Also follow-up with your primary care doctor within 1 week. Return to the Emergency Department immediately if you experience chest pain, difficulty breathing, passing out, difficulty walking or talking, or any other new or worsening symptom. - Post Discharge Activity
[2020-06-19 15:48] VITALS: BP 122/68; PULSE 72; TEMP 98.5
[2020-06-19] MEDS ORDERED: LIDOCAINE PATCH REMOVAL MC SCH (22:00)
--- NOTE | 2020-06-20 11:29 | EKG ---
Test Reason : Blood Pressure : / mmHG Vent. Rate : 061 BPM Atrial Rate : 061 BPM P-R Int : 174 ms QRS Dur : 082 ms QT Int : 378 ms P-R-T Axes : 050 074 047 degrees QTc Int : 380 ms NORMAL SINUS RHYTHM CANNOT RULE OUT ANTERIOR INFARCT , AGE UNDETERMINED ABNORMAL ECG WHEN COMPARED WITH ECG OF 10-AUG-2018 11:46, NO SIGNIFICANT CHANGE WAS FOUND Confirmed by VALERIY STEINER, SUYAPA ([id number]) on 06/20/2020 11:29:26 AM Referred By: Confirmed By:SUYAPA CROOKS MD
== END 2020-06-19 15:46 | disposition home or self-care (01) ==
LOC: JER 11:40
PROC: 3E0333Z Introduction of Anti-inflammatory into Peripheral Vein, Percutaneous Approach (ICD-10-PCS; principal; 2020-06-19)
DX: R20.0 Anesthesia of skin (principal); M54.2 Cervicalgia; R42 Dizziness and giddiness
CPT/HCPCS: 36415; 70450-TC; 71045-TC-FY; 80053; 82962; 84703; 85025; 93005; 93010; 99285-25

== ENCOUNTER 2020-11-07 17:38 | Emergency (ER) | payer OTHER ==
[2020-11-07 18:13] VITALS: TEMP 98.5; BMI 19.3
[2020-11-07] MEDS ORDERED: hydrOXYzine PAMOATE 25 MG CAPSULE (FP) PO ONE ×2 (18:26→19:03)
[2020-11-07 19:20] VITALS: BP 129/57; PULSE 81
== END 2020-11-07 19:20 | disposition home or self-care (01) ==
LOC: JER 17:38
DX: F41.9 Anxiety disorder, unspecified (principal)
CPT/HCPCS: 99283-25

== ENCOUNTER 2021-02-12 18:28 | Emergency (ER) | payer OTHER ==
[2021-02-12 19:01] VITALS: BP 100/59; PULSE 109; TEMP 98.7; BMI 20.1
[2021-02-12 20:54] LABS: BASO % 0.5 % (0-2.0); EOS % 1.4 % (0-4.5); HEMATOCRIT 38.4 % (32.4-45.2); HEMOGLOBIN 12.6 GM/dL (10.7-15.3); LYMPH % 25.7 % (8-40); MCH 28.8 pg (25.7-33.7); MCHC 32.8 g/dl (32.0-36.0); MEAN CELL VOLUME 87.6 fl (80-96); MEAN PLT VOLUME 7.6 fl (7.5-11.1); MONO % 5.6 % (3.8-10.2); NEUT % 66.8 % (42.8-82.8); PLATELET COUNT 260 K/MM3 (134-434); RBC 4.39 M/mm3 (3.60-5.2); RDW 13.3 % (11.6-15.6); WHITE BLOOD COUNT 11.3 K/mm3 (4.0-10.0)
[2021-02-12 21:07] LABS: URINE APPEARANCE Clear; URINE BILIRUBIN Negative (NEGATIVE); URINE COLOR Yellow; URINE GLUCOSE (UA) Negative (NEGATIVE); URINE KETONE Negative (NEGATIVE); URINE LEUK ESTERASE Negative (NEGATIVE); URINE NITRITE Negative (NEGATIVE); URINE PROTEIN Negative (NEGATIVE); URINE UROBILINOGEN 0.2 mg/dL (0.2-1.0)
[2021-02-12 21:16] LABS: POTASSIUM 3.7 mmol/L (3.5-5.1)
[2021-02-12 21:22] LABS: ALBUMIN 4.4 g/dl (3.4-5.0); BLOOD UREA NITROGEN 18.2 mg/dL (7-18); CALCIUM 9.5 mg/dL (8.5-10.1)
[2021-02-12 21:25] LABS: CREATININE 0.7 mg/dL (0.55-1.3)
[2021-02-12 21:27] LABS: BILIRUBIN,TOTAL 1.1 mg/dL (0.2-1); TOT PROT 7.7 g/dl (6.4-8.2)
== END 2021-02-12 22:16 | disposition home or self-care (01) ==
LOC: JER 18:28
DX: O20.8 Other hemorrhage in early pregnancy (principal)
CPT/HCPCS: 36415; 76817-TC; 80053; 81003; 84702; 85025; 86850; 86900; 86901; 87086; 87186; 99284-25

== ENCOUNTER 2021-05-28 15:39 | Emergency (ER) | payer OTHER ==
[2021-05-28 15:53] VITALS: BMI 23.3
[2021-05-28] MEDS ORDERED: ACETAMINOPHEN 325 MG TABLET (FP) ONE (17:08)
[2021-05-28 17:18] VITALS: BP 123/56; PULSE 68; TEMP 98.1
[2021-05-28] MEDS ORDERED: ACETAMINOPHEN 325 MG TABLET (FP) PO ONE ×2 (17:45→17:46)
[2021-05-28 18:33] LABS: PH,URINE 5.5 (5.0-8.0); URINE APPEARANCE CLOUDY; URINE BILIRUBIN NEGATIVE (NEGATIVE); URINE COLOR YELLOW; URINE GLUCOSE (UA) NEGATIVE (NEGATIVE); URINE KETONE NEGATIVE (NEGATIVE); URINE LEUK ESTERASE NEGATIVE (NEGATIVE); URINE NITRITE NEGATIVE (NEGATIVE); URINE PROTEIN NEGATIVE (NEGATIVE); URINE UROBILINOGEN 0.2 mg/dL (0.2-1.0)
== END 2021-05-28 17:56 | disposition home or self-care (01) ==
LOC: JER 15:39
DX: O26.892 Other specified pregnancy related conditions, second trimester (principal); R10.9 Unspecified abdominal pain; Z3A.20 20 weeks gestation of pregnancy
CPT/HCPCS: 81003; 99283-25

== ENCOUNTER 2021-08-01 20:23 | Emergency (ER) | payer OTHER ==
[2021-08-01 21:11] VITALS: BMI 25.2
[2021-08-01 22:01] LABS: BASO % 0.2 % (0-2.0); EOS % 0.7 % (0-4.5); HEMATOCRIT 31.3 % (32.4-45.2); HEMOGLOBIN 10.5 GM/dL (10.7-15.3); LYMPH % 11.4 % (8-40); MCH 30.2 pg (25.7-33.7); MCHC 33.6 g/dl (32.0-36.0); MEAN CELL VOLUME 89.8 fl (80-96); MONO % 6.2 % (3.8-10.2); NEUT % 81.5 % (42.8-82.8); PLATELET COUNT 220 10^3/uL (134-434); RBC 3.48 M/mm3 (3.60-5.2); RDW 13.5 % (11.6-15.6); WHITE BLOOD COUNT 15.9 K/mm3 (4.0-10.0)
[2021-08-01 22:09] LABS: INR 0.94 (0.83-1.09); PROTHROMBIN TIME (PATIENT) 11.6 SEC (9.7-13.0)
[2021-08-01 22:23] LABS: BLOOD UREA NITROGEN 6.2 mg/dL (7-18)
[2021-08-01 22:24] LABS: CALCIUM 8.7 mg/dL (8.5-10.1)
[2021-08-01 22:26] LABS: CREATININE 0.5 mg/dL (0.55-1.3)
[2021-08-01 22:27] LABS: BILIRUBIN,TOTAL 0.6 mg/dL (0.2-1); TOT PROT 6.6 g/dl (6.4-8.2)
[2021-08-01] MEDS ORDERED: ACETAMINOPHEN 1000 MG/100 ML VIAL (NON FORMULARY) IVPB ONE (22:41)
[2021-08-01] MEDS ORDERED: ONDANSETRON 4 MG/2 ML VIAL IVPUSH ONE (22:41)
[2021-08-01] MEDS ORDERED: ONDANSETRON 4 MG/2 ML VIAL ONE (22:48)
[2021-08-01] MEDS ORDERED: ACETAMINOPHEN INJECTION 100 ML IVPB ONE (22:48)
[2021-08-02] MEDS ORDERED: NITROFURANTOIN MACROCRYSTAL 50 MG CAPSULE (FP) PO SCH (01:30)
[2021-08-02] MEDS ORDERED: NITROFURANTOIN MACROCRYSTAL 50 MG CAPSULE (FP) ONE (01:30)
[2021-08-02 01:31] LABS: EPI CELLS 27 /uL (0-25.1); HYALINE CASTS 2 /uL (0-3.1); PH,URINE 5.5 (5.0-8.0); URINE APPEARANCE CLOUDY; URINE BACTERIA 6548 /uL (0-1359); URINE BILIRUBIN NEGATIVE (NEGATIVE); URINE COLOR YELLOW; URINE GLUCOSE (UA) NEGATIVE (NEGATIVE); URINE KETONE NEGATIVE (NEGATIVE); URINE LEUK ESTERASE TRACE (NEGATIVE); URINE NITRITE NEGATIVE (NEGATIVE); URINE PROTEIN TRACE (NEGATIVE); URINE RBC 6 /uL (0-23.9); URINE WBC 43 /uL (0-25.8)
[2021-08-02 01:47] VITALS: BP 118/76; PULSE 88; TEMP 98.6
== END 2021-08-02 01:48 | disposition left against medical advice (07) ==
LOC: JER 20:23
PROC: 3E033NZ Introduction of Analgesics, Hypnotics, Sedatives into Peripheral Vein, Percutaneous Approach (ICD-10-PCS; principal; 2021-08-01)
PROC: 3E033GC Introduction of Other Therapeutic Substance into Peripheral Vein, Percutaneous Approach (ICD-10-PCS; 2021-08-01)
DX: Z04.3 Encounter for examination and observation following other accident (principal); Y04.0XXA Assault by unarmed brawl or fight, initial encounter; Y92.9 Unspecified place or not applicable
CPT/HCPCS: 36415; 76817-TC; 76819-TC; 80053; 81003; 84702; 85025; 85610; 87086; 87186; 93005; 93010; 99284-25; C9803; J0131; U0003; U0005

== ENCOUNTER 2021-10-08 08:15 | Inpatient (IN) | payer OTHER ==
[2021-10-08] MEDS: ELECTROLYTE-148 SOLN 1,000 ML IV SCH ×2 (09:00→18:52)
[2021-10-08 09:58] VITALS: BMI 26.2
[2021-10-08] MEDS ORDERED: PCA PUMP NR ONE ×2 (11:59→20:26)
[2021-10-08] MEDS ORDERED: FENTANYL/BUPIVACAINE/NS/PF - PCEA - 50 ML DISP.SYRIN EP ONE ×3 (11:59→20:26)
[2021-10-08] MEDS ORDERED: FENTANYL/BUPIVACAINE/NS/PF - PCEA - 50 ML DISP.SYRIN EP SCH (13:45)
[2021-10-08] MEDS ORDERED: NALOXONE HCL 0.4 MG/ML VIAL IVPUSH PRN (13:45)
[2021-10-08] MEDS ORDERED: OXYTOCIN 30 UNITS in 0.9% NS 30 UNIT/500 ML INFUS.BAG IVPB ONE (13:56)
[2021-10-08] MEDS ORDERED: OXYTOCIN 30 UNITS in 0.9% NS 30 UNIT/500 ML INFUS.BAG IVPB SCH (14:15)
[2021-10-08] MEDS: FENTANYL/BUPIVACAINE/NS/PF - PCEA - 50 ML DISP.SYRIN EP SCH ×2 (14:56→17:20)
[2021-10-08] MEDS ORDERED: OXYTOCIN 20 UNITS in 0.9% NS 20 UNIT/1,000 ML INFUS.BAG IV ONE (19:19)
[2021-10-08] MEDS ORDERED: METHYLERGONOVINE MALEATE 0.2 MG/1 ML AMP IM PRN (22:05)
[2021-10-08] MEDS ORDERED: BENZOCAINE 28 GM HEMORRHOIDAL OINTMENT TP PRN (22:05)
[2021-10-08] MEDS ORDERED: BISACODYL 10 MG SUPP.RECT RC PRN (22:05)
[2021-10-08] MEDS ORDERED: ACETAMINOPHEN 325 MG TABLET (FP) PO PRN (22:05)
[2021-10-08] MEDS ORDERED: BENZOCAINE 20% 57 GM BOTTLE TP PRN (22:05)
[2021-10-08] MEDS ORDERED: WITCH HAZEL 50% (TUCKS) 40 PAD/JAR PAD TP PRN (22:05)
[2021-10-08] MEDS ORDERED: OXYTOCIN 20 UNITS in 0.9% NS 20 UNIT/1,000 ML INFUS.BAG IV SCH (22:15)
[2021-10-08] MEDS ORDERED: ONDANSETRON 4 MG/2 ML VIAL ONE (22:48)
[2021-10-08] MEDS ORDERED: ONDANSETRON 4 MG/2 ML VIAL IVPB ONE (23:00)
[2021-10-09] MEDS: IBUPROFEN 600 MG TABLET (FP) PO PRN ×4 (04:38→21:17)
[2021-10-09 08:46] LABS: HEMATOCRIT 28.9 % (32.4-45.2); HEMOGLOBIN 9.6 GM/dL (10.7-15.3); MCH 29.9 pg (25.7-33.7); MCHC 33.3 g/dl (32.0-36.0); MEAN CELL VOLUME 89.8 fl (80-96); MEAN PLT VOLUME 7.2 fl (7.5-11.1); PLATELET COUNT 235 10^3/uL (134-434); RBC 3.22 M/mm3 (3.60-5.2); RDW 13.3 % (11.6-15.6); WHITE BLOOD COUNT 22.6 K/mm3 (4.0-10.0)
[2021-10-09] MEDS: PRENATAL VITAMINS W/ FOLIC ACID TABLET (FP) PO SCH (09:28)
[2021-10-09] MEDS: FERROUS SO4 325 MG TABLET (FP) PO SCH ×3 (09:28→17:17)
[2021-10-09] MEDS: FLUoxetine HCL 10 MG CAPSULE PO SCH (09:29)
[2021-10-09 09:58] LABS: ANISOCYTOSIS 1+; MACROCYTOSIS 0; OVALOCYTE 1+; PLATELET ESTIMATE NORMAL
[2021-10-09] MEDS ORDERED: PNEUMOCOCCAL 23 VACCINE 0.5 ML VIAL IM ONE (10:00)
[2021-10-09] MEDS ORDERED: PNEUMOC 13-VAL CONJ-DIP CRM/PF 0.5 ML DISP.SYRIN IM ONE (10:00)
[2021-10-09] MEDS ORDERED: FLU VACC QS2021-22(6MOS UP)/PF 60 MCG/0.5 ML SYRINGE IM ONE (10:00)
[2021-10-09] MEDS ORDERED: DIPHTH,PERTUSS(ACELL),TET 0.5 ML DISP.SYRIN IM ONE (10:00)
[2021-10-09] MEDS ORDERED: SENNOSIDES/DOCUSATE COMBO (SENNA PLUS) TABLET (UD) PO PRN (22:00)
[2021-10-09] MEDS: FENTANYL/BUPIVACAINE/NS/PF - PCEA - 50 ML DISP.SYRIN EP SCH (22:56)
[2021-10-10] MEDS: FERROUS SO4 325 MG TABLET (FP) PO SCH ×2 (09:00→11:42)
[2021-10-10] MEDS: PRENATAL VITAMINS W/ FOLIC ACID TABLET (FP) PO SCH (09:24)
[2021-10-10] MEDS: FLUoxetine HCL 10 MG CAPSULE PO SCH (09:24)
[2021-10-10 10:16] VITALS: BP 113/69; PULSE 79; TEMP 97.8
== END 2021-10-10 12:30 | disposition home or self-care (01) | DRG 540 ==
LOC: JLDR 08:15 → J3W 23:52
PROVIDERS: ADMIT Obstetrics & Gynecology; ATTEND Obstetrics & Gynecology
PROC: 10D00Z1 Extraction of Products of Conception, Low, Open Approach (ICD-10-PCS; principal; 2021-10-08)
PROC: 10907ZC Drainage of Amniotic Fluid, Therapeutic from Products of Conception, Via Natural or Artificial Opening (ICD-10-PCS; 2021-10-08)
PROC: 0U7C7ZZ Dilation of Cervix, Via Natural or Artificial Opening (ICD-10-PCS; 2021-10-08)
PROC: 3E033VJ Introduction of Other Hormone into Peripheral Vein, Percutaneous Approach (ICD-10-PCS; 2021-10-08)
PROC: 10H07YZ Insertion of Other Device into Products of Conception, Via Natural or Artificial Opening (ICD-10-PCS; 2021-10-08)
DX: O34.219 Maternal care for unspecified type scar from previous cesarean delivery (principal); Z3A.39 39 weeks gestation of pregnancy; Z37.0 Single live birth
CPT/HCPCS: 36415; 59025; 59409; 80048; 85025; 85610; 85730; 86780; 86850; 86900; 86901; 90686; 90715; 96360; 96361; C9803; G0008; G0463-25; U0003; U0005

== ENCOUNTER 2022-09-01 08:17 | Emergency (ER) | payer OTHER ==
[2022-09-01 08:29] VITALS: BP 116/75; PULSE 89; RESP 20; TEMP 98; BMI 19.6
[2022-09-01] MEDS ORDERED: ONDANSETRON 4 MG/2 ML VIAL IVPUSH ONE (09:31)
[2022-09-01] MEDS ORDERED: SODIUM CHLORIDE 1,000 ML IV STA (09:31)
[2022-09-01] MEDS ORDERED: FAMOTIDINE 20 MG/50 ML IVPB 20 MG/50 ML MG IVPB ONE ×2 (09:31→09:35)
[2022-09-01] MEDS ORDERED: MAG HYDROX/AL HYDROX/SIMETH 30 ML UNIT-DOSE CUP PO ONE (09:31)
[2022-09-01] MEDS ORDERED: MAG HYDROX/AL HYDROX/SIMETH 30 ML UNIT-DOSE CUP ONE (09:34)
[2022-09-01] MEDS ORDERED: ONDANSETRON 4 MG/2 ML VIAL ONE (09:34)
[2022-09-01 10:04] LABS: PH,URINE 5.5 (5.0-8.0); URINE APPEARANCE CLEAR; URINE BILIRUBIN NEGATIVE (NEGATIVE); URINE COLOR YELLOW; URINE GLUCOSE (UA) NEGATIVE (NEGATIVE); URINE KETONE NEGATIVE (NEGATIVE); URINE LEUK ESTERASE NEGATIVE (NEGATIVE); URINE NITRITE NEGATIVE (NEGATIVE); URINE PROTEIN NEGATIVE (NEGATIVE)
[2022-09-01 11:59] LABS: CHLORIDE 108 mmol/L (98-107); SODIUM 139 mmol/L (136-145)
[2022-09-01 12:01] LABS: ALBUMIN 4.2 g/dl (3.4-5.0); ANION GAP 4 MMOL/L (8-16); BLOOD UREA NITROGEN 22.7 mg/dL (7-18); CO2 27 mmol/L (21-32); GLUCOSE,RANDOM 81 mg/dL (74-106)
[2022-09-01 12:03] LABS: LIPASE 122 U/L (73-393)
[2022-09-01 12:04] LABS: SGOT/AST 64 U/L (15-37); SGPT/ALT 27 U/L (13-61)
[2022-09-01 12:05] LABS: CREATININE 0.8 mg/dL (0.55-1.3)
[2022-09-01 12:06] LABS: ALK PHOS 60 U/L (45-117); BILIRUBIN,TOTAL 1.9 mg/dL (0.2-1)
[2022-09-01 13:04] LABS: BASO % 0.5 % (0-2.0); EOS % 0.9 % (0-4.5); HEMATOCRIT 35.5 % (32.4-45.2); HEMOGLOBIN 11.8 GM/dL (10.7-15.3); LYMPH % 27.7 % (8-40); MCHC 33.4 g/dl (32.0-36.0); MEAN PLT VOLUME 7.3 fl (7.5-11.1); NEUT % 65.9 % (42.8-82.8); PLATELET COUNT 195 10^3/uL (134-434); RBC 4.08 M/mm3 (3.60-5.2); RDW 13.4 % (11.6-15.6); WHITE BLOOD COUNT 6.3 K/mm3 (4.0-10.0)
[2022-09-01] MEDS ORDERED: METOCLOPRAMIDE HCL INJECTION 10 MG/2 ML VIAL IVPB ONE (14:58)
[2022-09-01 15:05] LABS: BILIRUBIN,DIRECT 0.2 mg/dL (0.0-0.2)
[2022-09-01] MEDS ORDERED: METOCLOPRAMIDE HCL INJECTION 10 MG/2 ML VIAL ONE (15:15)
== END 2022-09-01 16:38 | disposition home or self-care (01) ==
LOC: JER 08:17
PROC: 3E033GC Introduction of Other Therapeutic Substance into Peripheral Vein, Percutaneous Approach (ICD-10-PCS; principal; 2022-09-01)
DX: K21.9 Gastro-esophageal reflux disease without esophagitis (principal)
CPT/HCPCS: 36415; 76705-TC; 80053; 81003; 82248; 83690; 84702; 84703; 85025; 87086; 93005; 93010; 99285-25

== ENCOUNTER 2022-09-28 19:27 | Emergency (ER) | payer OTHER ==
[2022-09-28 19:47] VITALS: BP 128/61; PULSE 89; RESP 20; TEMP 98.8
[2022-09-28] MEDS ORDERED: methylPREDNISolone NA SUCC 125 MG/2 ML VIAL IVPUSH ONE (19:56)
[2022-09-28] MEDS ORDERED: FAMOTIDINE 20 MG/50 ML IVPB 20 MG/50 ML MG IVPB ONE ×2 (19:57→20:08)
[2022-09-28] MEDS ORDERED: methylPREDNISolone NA SUCC 125 MG/2 ML VIAL ONE (20:08)
== END 2022-09-29 00:07 | disposition home or self-care (01) ==
LOC: JER 19:27
PROC: 3E033GC Introduction of Other Therapeutic Substance into Peripheral Vein, Percutaneous Approach (ICD-10-PCS; principal; 2022-09-28)
DX: R21 Rash and other nonspecific skin eruption (principal)
CPT/HCPCS: 84703; 99284-25

== ENCOUNTER 2023-03-23 11:35 | Emergency (ER) | payer OTHER ==
[2023-03-23 12:16] VITALS: RESP 18; TEMP 98.3; BMI 20.2
[2023-03-23] MEDS ORDERED: SODIUM CHLORIDE 0.9% 500 ML INFUS.BAG IV ONE ×2 (12:43→15:09)
[2023-03-23] MEDS ORDERED: ACETAMINOPHEN 1000 MG/100 ML BAG IVPB ONE (12:43)
[2023-03-23] MEDS ORDERED: ACETAMINOPHEN INJECTION 100 ML IVPB ONE (12:46)
[2023-03-23 13:19] LABS: PH,URINE 5.5 (5.0-8.0); URINE APPEARANCE CLEAR; URINE BILIRUBIN NEGATIVE (NEGATIVE); URINE COLOR YELLOW; URINE GLUCOSE (UA) NEGATIVE (NEGATIVE); URINE KETONE TRACE (NEGATIVE); URINE LEUK ESTERASE NEGATIVE (NEGATIVE); URINE NITRITE NEGATIVE (NEGATIVE); URINE PROTEIN NEGATIVE (NEGATIVE); URINE UROBILINOGEN 0.2 mg/dL (0.2-1.0)
[2023-03-23 13:20] LABS: BASO % 0.4 % (0-2.0); EOS % 0.7 % (0-4.5); HEMATOCRIT 38.8 % (32.4-45.2); HEMOGLOBIN 12.8 GM/dL (10.7-15.3); LYMPH % 14.6 % (8-40); MCH 28.2 pg (25.7-33.7); MCHC 33.1 g/dl (32.0-36.0); MEAN PLT VOLUME 6.8 fl (7.5-11.1); NEUT % 79.3 % (42.8-82.8); PLATELET COUNT 258 10^3/uL (134-434); RBC 4.56 M/mm3 (3.60-5.2); RDW 13.4 % (11.6-15.6); WHITE BLOOD COUNT 5.9 K/mm3 (4.0-10.0)
[2023-03-23 13:27] VITALS: BP 120/65; PULSE 82
[2023-03-23 13:28] LABS: POTASSIUM 3.9 mmol/L (3.5-5.1)
[2023-03-23 13:31] LABS: BLOOD UREA NITROGEN 23.3 mg/dL (7-18); CALCIUM 9.3 mg/dL (8.5-10.1); MAGNESIUM 2.1 mg/dL (1.8-2.4)
[2023-03-23 13:32] LABS: ALBUMIN 4.2 g/dl (3.4-5.0)
[2023-03-23 13:34] LABS: CREATININE 0.8 mg/dL (0.55-1.3)
[2023-03-23 13:36] LABS: BILIRUBIN,TOTAL 0.9 mg/dL (0.2-1); TOT PROT 7.9 g/dl (6.4-8.2)
== END 2023-03-23 16:32 | disposition home or self-care (01) ==
LOC: JER 11:35
PROC: 3E033NZ Introduction of Analgesics, Hypnotics, Sedatives into Peripheral Vein, Percutaneous Approach (ICD-10-PCS; principal; 2023-03-23)
DX: R55 Syncope and collapse (principal); Z20.822 Contact with and (suspected) exposure to COVID-19
CPT/HCPCS: 0241U-QW; 36415; 70450-TC; 71045-TC-FY; 80053; 81003; 82962; 83735; 84703; 85025; 87086; 93005; 93010; 99285-25

== ENCOUNTER 2023-12-04 16:08 | Emergency (ER) | payer OTHER ==
[2023-12-04 16:15] VITALS: BP 111/82; PULSE 74; RESP 18; TEMP 98.1; BMI 21.2
[2023-12-04] MEDS ORDERED: KETOROLAC TROMETHAMINE 30 MG/1 ML VIAL IM ONE (16:52)
[2023-12-04] MEDS ORDERED: KETOROLAC TROMETHAMINE 30 MG/1 ML VIAL ONE (17:10)
[2023-12-04 17:45] LABS: EPI CELLS >36 /uL (0-25.1); HYALINE CASTS 1 /uL (0-3.1); PH,URINE 5.5 (5.0-8.0); URINE APPEARANCE CLOUDY; URINE BACTERIA >9,000 /uL (0-1359); URINE BILIRUBIN NEGATIVE (NEGATIVE); URINE COLOR YELLOW; URINE GLUCOSE (UA) NEGATIVE (NEGATIVE); URINE KETONE NEGATIVE (NEGATIVE); URINE LEUK ESTERASE NEGATIVE (NEGATIVE); URINE NITRITE POSITIVE (NEGATIVE); URINE PROTEIN NEGATIVE (NEGATIVE); URINE RBC 23 /uL (0-23.9); URINE WBC 21 /uL (0-25.8)
== END 2023-12-04 18:13 | disposition home or self-care (01) ==
LOC: JERFT 16:08
PROC: 3E0233Z Introduction of Anti-inflammatory into Muscle, Percutaneous Approach (ICD-10-PCS; principal; 2023-12-04)
DX: K08.89 Other specified disorders of teeth and supporting structures (principal); K01.1 Impacted teeth; N39.0 Urinary tract infection, site not specified
CPT/HCPCS: 81003; 87086; 87186; 99284-25

== ENCOUNTER 2023-12-06 13:03 | Emergency (ER) | payer OTHER ==
[2023-12-06 13:45] VITALS: BP 104/59; PULSE 73; RESP 18; TEMP 98.8; BMI 21.2
[2023-12-06] MEDS ORDERED: KETOROLAC TROMETHAMINE 30 MG/1 ML VIAL IM ONE (15:00)
[2023-12-06] MEDS ORDERED: KETOROLAC TROMETHAMINE 30 MG/1 ML VIAL ONE (15:02)
== END 2023-12-06 15:07 | disposition home or self-care (01) ==
LOC: JER 13:03 → JERFT 13:03
PROC: 3E0233Z Introduction of Anti-inflammatory into Muscle, Percutaneous Approach (ICD-10-PCS; principal; 2023-12-06)
DX: K08.89 Other specified disorders of teeth and supporting structures (principal)
CPT/HCPCS: 99284-25